=== PATIENT | female | born 1970 | race Caucasian/White ===

== ENCOUNTER → 2017-03-15 | Outpatient (CLI) | payer BC ==
[~2017-03-15] MED LIST: ADVIN25050 INH; ALBU0.08 INH; ALBUAER19 INH; ASPEC81 PO; CETI10TA84 PO; DEXL30CA5 PO; DIPH25CA65 PO; GUAI1TAB55 PO; MONT1TAB3 PO; PROM25TA9 PO; SUMA25TA12 PO; TOPI50TA16 PO
--- NOTE | 2017-03-15 12:18 | DIAGNOSTIC IMAGING REPORT ---
CHEST 2 VIEWS ROUTINE CLINICAL HISTORY: 47 years-old Female presenting with cough. TECHNIQUE: PA and lateral views of the chest were obtained. COMPARISON: None. FINDINGS: Cardiomediastinal silhouette normal. Lungs and pleural spaces clear. Osseous structures and upper abdomen normal. IMPRESSION: 1. No acute cardiopulmonary disease. Electronically signed by: Murali Gavin 03/15/2017 12:17 PM Dictated Date/Time: 03/15/2017 12:16 PM
== END | disposition home or self-care (01) ==
LOC: C.RADBBURG 10:10
PROVIDERS: ATTEND Physician Assistant
DX: R05 Cough (principal)

== ENCOUNTER → 2017-08-27 | Outpatient (CLI) | payer BC ==
--- NOTE | 2017-08-28 07:41 | PAP/PSG TECHNICIAN REPORT ---
[facility] Dairy Equipment Installer Polysomnogram Report Study name: None Report date: 08/28/2017 Study date: 08/27/2017 Referring Physician: Judy Curtis PA-C, PA-C Name: KHLOE LUGO Interpreting Physician: Santiago Zavaleta D.O. Date of : 1970 Dairy Equipment Installer: Maria Isabel Wood [facility]. Sex: Female Age: 47 StudyType: PSG PAP Weight: 251 lbs Height: 47 years, Height 5' 2" : BMI: 45.9 Medications: Mucinex 600 mg, Zyrtec 10 mg, Montelukast 10 mg, Dexilant 60 mg, Imitrex, Benadryl 25 mg, Sumatriptan 100 mg, Promethazine 25 mg, Ventolin 90 mcg, Atrovent 90 mcg, Albuterol Patient History 47 yr. old female here for an update titration sleep study. Patients had been on CPAP since 2011 and is on 12 CWP. She has never had an in lab sleep study. Patients [place] Sleepiness Scale Score is 8/24. Parameters Monitored NPSG: E1-M2, E2-M1, Fp1-M2, Fp2-M1, F3-M2, F4-M2, F4-M1, C3-M2, C4-M2, C4-M1, O1-M2, O2-M2, O2-M1, T3-M2, T4-M1, P3-M2, P4-M1, CHIN1, CHIN2, HR, EKG, Legs, PFLOW, SNOR, FLOW, CFLOW, Tidal Volume, THOR, ABDO, SpO2, PLTH, CPRESS, ETCO2 Wave, ETCO2, pH Sleep Architecture Sleep Stages Time at Lights Off 10:21:02 PM STAGES Time (min.) TST (%) Time at Lights On 5:35:02 AM Wake 6.5 -- Total Recording Time (TRT) 434.00 min. N1 9.5 2 Total Sleep Period (TSP) 430.5 min. N2 242.0 57 Total Sleep Time (TST) 427.5min. N3 71.5 17 Awake Time 6.5 min. REM 104.5 24 Wake after Sleep Onset 3.0 min. Sleep Efficiency (SE) 99 % Sleep Onset Latency (SOSA) 3.5 min. Number of Stage 1 Shifts None Awakenings 5 Stage Changes 46 Number of REM periods 5 REM 104.5 24 REM Latency 80.5 min. NREM 323.0 76 Body Position Analysis Supine Right Left Side Prone Vertical Total Sleep Time (min.) 197.7 101.0 130.3 231.28 0.0 1.3 Total Sleep Time (%) 46% 24% 30% 54 0% N/A% Total Sleep Time REM (min.) 63.5 32.5 8.5 None 0.0 0.0 Total Sleep Time NREM (min.) 132.7 68.5 121.8 None 0.0 0.0 Intermittent Wake (min.) 1.5 0.0 3.7 None 0.0 1.3 Total Sleep Period (%) 46% None None None None None Arousals Myoclonus (PLM) * Events Count Index Events Count Index Spontaneous 4 1 Events Awake (PLMW) 7 64.6 Respiratory 0 0.0 Events Asleep w/ Arousal (PLMA) 3 0.4 PLM 3 0 Events Asleep w/o Arousal (PLMS) 26 3.6 Snoring 1 0 Total Asleep 29 4.1 Total 8 1 Total 36 5 Respiratory Analysis * CA OA MA CH H RERA Total Count 0 0 0 0 7 0 7 Index 0.0 0.0 0.0 0 1.0 0 1.0 Mean Duration 0.0 0.0 0.0 0.00 24.0 0.0 24.0 Longest Duration 0.0 0.0 0.0 0.00 0.0 0.0 47.1 Respiratory Event Summary Total Supine ~Supine Right Left Prone REM NREM Apneas Count 0 0 0 0 0 N/A 0 0 Index 0.0 0 0 0.0 0.0 N/A 0 0 Hypopneas (4% Desat) Count 7 6 1 1 0 N/A 1 6 Index 1.0 1.8 0 0.6 0.0 N/A 0.6 1.1 Apneas & All Hypopneas Count 7 6 1 1 0 N/A 1 6 Index 1.0 2 0 1 0 N/A 0.6 1.1 Respiratory Events (Structural Metal Worker+All Hyp+RERA) Count 7 6 1 1 0 N/A 1 6 Index 1.0 2 0 0.6 0.0 N/A 0.6 1.1 Respiratory Related Arousal Count 0 6 0 0 0 N/A 0 0 Index 0.0 0 0 0 0 N/A 0 0 Snoring Analysis Supine Right Left Prone REM NREM Total Snore duration 15.0 min Snores count 376 6 467 N/A 94 755 849 Snore mean duration 1.1 Sec Snores index 115 4 215 N/A 54.0 140.2 119.2 TST with snoring (%) 3.5% Desaturation Event Summary: Minimum %SpO2 Event Count Mean/Min/Max Duration(sec.) Desaturation Index % Time In Bed > 90 10 29.7 / 10.3 / 53.3 1.4 100.0 86 - 90 0 N/A 0.0 0.0 81 - 85 0 N/A 0.0 0.0 76 - 80 0 N/A 0.0 0.0 71 - 75 0 N/A 0.0 0.0 66 - 70 0 N/A 0.0 0.0 61 - 65 0 N/A 0.0 0.0 56 - 60 0 N/A 0.0 0.0 51 - 55 0 N/A 0.0 0.0 < 50 0 N/A 0.0 0.0 Total REM NREM Awake <50% 0.0 min. 0.0 min. 0.0 min. 0.0 min. 51 - 60% 0.0 min. 0.0 min. 0.0 min. 0.0 min. 61 - 70% 0.0 min. 0.0 min. 0.0 min. 0.0 min. 71 - 80% 0.0 min. 0.0 min. 0.0 min. 0.0 min. 81 - 90% 0.2 min. 0.0 min. 0.2 min. 0.0 min. 91 - 100% 433.5 min. 104.5 min. 322.8 min. 6.2 min. Average 96 96 96 97 Minimum SpO2 90 92 90 94 Desaturation Event Index 1.4 1.1 1.3 9.2 # Desat. Events below 89% N/A N/A N/A N/A Time(%) with Saturation below 89% 0.0 0.0 0.0 0.0 Time(min.) with Saturation below 89% 0.0 0.0 0.0 0.0 Time (mins) REM (mins) NREM (mins) % of TST SpO2 Below 90% 2 N/A N2 0.0 SpO2 Below 88% 0 0 0 0 Heart Rate Analysis Min (bpm) Max (bpm) Average (bpm) Awake 73 111 89 NREM 69 112 84 REM 73 101 86 Overall 69 112 84 Supplemental O2 Values Minimum O2 level: None Value Start Time End Time Dairy Equipment Installer Comments MS. Lugo slept in the right, left, and supine positions. No cardiac arrhythmia or PLMs noted. No bruxism noted. CPAP was initiated at +4 CMH2O room air and up-titrated to an optimal level of +7 CMH2O Cflex 2 , which nearly eliminated all respiratory events and snoring. A small ResMed [id number], was used during titration. MS. Lugo did not wake to use the restroom during the night. MS. Lugo stated, "that was a normal night". The final report will be interpreted and signed by a sleep physician. The completed physician report will then be placed in the patient medical record. Therapy Event: Therapy (cm H20) 4 5 6 7 Total Time at Pressure (min.) 22.1 11.8 163.6 236.4 TST at Pressure (min.) 18.7 11.8 161.6 235.4 # Periods 1 1 1 1 Sleep Onset (min.) 3.4 0.0 0.0 0.0 REM Onset (min.) N/A N/A 49.9 4.9 Sleep Efficiency % 84 100 98 99 Wakefulness (%) 15.3 0.0 1.2 0.4 Wakefulness (min.) 3.4 0.0 2.0 1.0 NREM 1 (%) 9.0 0.0 1.8 1.9 NREM 1 (min.) 2.0 0.0 3.0 4.5 NREM 2 (%) 75.6 65.7 46.5 59.8 NREM 2 (min.) 16.7 7.8 76.1 141.4 NREM 3 (%) 0.0 34.3 35.7 3.8 NREM 3 (min.) 0.0 4.1 58.4 9.0 REM (%) 0.0 0.0 14.7 34.1 REM (min.) 0.0 0.0 24.0 80.5 # Arousals 0 0 3 5 Arousal Index 0.0 0.0 1.1 1.3 # Snore 59 162 449 179 Snore Index 189.0 821.9 166.8 45.6 AHI 0.0 0.0 2.2 0.3 AHI Supine N/A N/A 3.0 0.6 AHI Non-Supine 0.0 0.0 1.0 0.0 NREM AHI 0.0 0.0 2.6 0.0 REM AHI N/A N/A 0.0 0.7 RDI 0.0 0.0 2.2 0.3 # Obstructive 0 0 0 0 # Central Ap 0 0 0 0 # Mixed 0 0 0 0 # Hypopneas 0 0 6 1 RERAS 0 0 0 0 Total Respiratory Events 0 0 6 1 Time Below SpO2 89.00% (min.) 0.0 0.0 0.0 0.0 Mean NREM SpO2 (%) 97 96 96 96 Mean REM SpO2 (%) N/A N/A 95 96 Mean Sleep SpO2 (%) 97 96 95 96 Min NREM SpO2 (%) 94 95 90 94 Min REM SpO2 (%) N/A N/A 92 93 Position Supine (min.) 0.0 0.0 98.6 97.6 Position Non-supine (min.) 18.7 11.8 62.9 137.8 LM Index Sleep 3.2 0.0 3.7 4.6 LM Index NREM 3.2 0.0 3.5 4.3 LM Index REM N/A N/A 5.0 5.2 Mean Heart Rate (bpm) 90 88 86 83 Min Heart Rate (bpm) 86 83 75 69
== END | disposition home or self-care (01) ==
LOC: C.NEUR 20:00
PROVIDERS: ATTEND Physician Assistant
DX: G47.30 Sleep apnea, unspecified (principal)

== ENCOUNTER 2017-10-24 12:12 | Emergency (ER) | payer BC, OTHER ==
[~2017-10-24] VITALS: Ht 157.5 cm; Wt 120.0 kg
[2017-10-24 12:17] VITALS: TEMP 37; Ht 157.5 cm; Wt 120.0 kg
[2017-10-24] MEDS ORDERED: DEXL60CA4 PO (12:45)
[2017-10-24] MEDS ORDERED: RANI150T85 PO (12:45)
[2017-10-24] MEDS ORDERED: PHENSYP13 PO (12:45)
[2017-10-24] MEDS ORDERED: ATRIN INH (12:45)
[2017-10-24] MEDS ORDERED: FLUT1INH PO (12:45)
[2017-10-24] MEDS ORDERED: IPRASOL4 INH (12:45)
--- NOTE | 2017-10-24 13:18 | EMERGENCY ROOM VISIT NOTE ---
History First contact with patient: 12:30 Chief Complaint: RESPIRATORY PROBLEMS Stated Complaint: ASTHMA Nursing Triage Summary: cough since this am History of Present Illness The patient is a 47 year old female who presents to the Emergency Room with complaints of ongoing cough, wheezing, worsening asthma symptoms since September 13 of this year. On September 18, the patient was seen at [facility] where she was put on Augmentin, prednisone, and DuoNeb treatments. On September 20, she followed up with her primary care provider who increased her prednisone dose and put her on codeine cough syrup. On September 29, the patient was seen at [place], where she was put on Levaquin for 7 days. On October 11, she was seen again by her primary care provider where she had a negative chest x-ray performed. At that time, she was given a steroid injection , repeat taper of steroids, more codeine cough syrup, and advised to do DuoNeb treatments every 4 hours. On October 15, she saw her primary care provider again and was started on a 10 day course of Levaquin. The patient states that that time, she was advised to avoid working until she was feeling better. She states she went back to work on Saturday of this week, and her symptoms have been worsening. At 6:00 this morning, she did a nebulizer treatment, got a shower, and while getting out of the shower began experiencing significant dyspnea and wheezing which she described as an asthma attack. She took her rescue inhaler and did not experience any relief. 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 Upon arrival, the patient is feeling back to her baseline for the past 6 weeks. She continues to complain of cough, but no longer has the difficulty breathing or significant wheezing. She did take Atrovent, her final dose of Levaquin, Mucinex, and Zyrtec this morning. She denies any chest pain, difficulty breathing at this time, headache , dizziness, abdominal pain, nausea, vomiting, fever, or other concerning symptoms. Review of Systems A complete 10 point review of systems was reviewed with the patient with pertinent positives and negatives as per history of present illness. All else were negative. Past Medical/Surgical History Medical Problems: (1) Hypertension Social History Smoking Status: Never Smoker Drug Use: none Marital Status: Housing Status: lives with family Current/Historical Medications Scheduled Cetirizine (Zyrtec), 10 MG PO DAILY Dexlansoprazole (Dexilant), 60 MG PO QPM Fluticasone Furoate-Vilanterol (Breo Ellipta), 1 PUFF PO DIRECTED Ipratropium-Albuterol (Duoneb), 1 TREATMENT INH Q4H Montelukast Sodium (Singulair), 10 MG PO DAILY Prednisone Tab (Prednisone), 60 MG PO DAILY Ranitidine (Zantac), 150 MG PO QAM Sumatriptan Succinate (Imitrex), 1 TAB PO PRN Topiramate (Topamax), 50 MG PO DAILY Scheduled PRN Albuterol Inhaler (Ventolin Inhaler), 2 PUFFS INH QID PRN for SOB/Wheezing Albuterol Soln (Proventil 0.083% 2.5MG/3ML), 2.5 MG INH Q4 PRN for SOB/Wheezing Diphenhydramine Hcl (Benadryl Allergy), 1 CAP PO DAILY PRN for ALLERGIC REACTION Guaifenesin Ext Rel (Mucinex Ext Rel), 600 MG PO Q12 PRN for CONGESTION Ipratropium [place] (Atrovent Hfa), 2 PUFFS INH QID PRN for PRN Promethaz/Phenylephrin/Codeine (Promethazine Vc/Codeine), 5-10 ML PO Q6 PRN for Cough Promethazine Hcl (Phenergan), 25 MG PO Q6H PRN for Nausea Physical Exam Vital Signs Date Time Temp Pulse Resp B/P (MAP) Pulse Ox O2 Delivery O2 Flow Rate FiO2 10/24/17 17:35 99 21 146/97 95 10/24/17 16:21 104 22 138/94 96 Room Air 10/24/17 14:47 126/82 10/24/17 14:12 98 15 100 10/24/17 13:50 107 24 128/72 94 Room Air 10/24/17 13:49 95 Room Air 10/24/17 13:42 103 19 98 10/24/17 13:31 104 10/24/17 13:27 129/72 10/24/17 12:17 37.0 114 20 144/88 98 Room Air Physical Exam VITALS: Vitals are noted on the nurse's note and reviewed by myself. Vital signs stable. GENERAL: This is a 47-year-old obese white female, in no acute distress, nondiaphoretic, well-developed well-nourished. SKIN: The skin was without rashes, erythema, edema, or bruising. There is no tenting of the skin. Capillary reflex less than 2 seconds. HEAD: Normocephalic atraumatic. EARS: External auditory canals clear, tympanic membranes pearly dillard without erythema or effusion bilaterally. EYES: Pupils equal round and reactive to light and accommodation. Conjunctivae without injection, sclerae without icterus. Extraocular movements intact. NOSE: Patent, turbinates without inflammation or discharge. No sinus tenderness. MOUTH: Mucous membranes moist. Tonsils are not enlarged. Pharynx without erythema or exudate. Uvula midline. Airway patent. Tongue does not deviate. NECK: Supple without nuchal rigidity. No lymphadenopathy. No thyromegaly. Cervical spine is nontender. No JVD. HEART: Regular rate and rhythm without murmurs gallops or rubs. LUNGS: Mild occasional expiratory wheezing diffusely. Lungs are otherwise clear to auscultation bilaterally without wheezes, rales or rhonchi. No dullness to percussion. No retractions or accessory muscle use. The patient does have a dry sounding cough. ABDOMEN: Positive bowel sounds x 4. Normal tympanic percussion. Soft, nontender, without masses or organomegaly. Jeter sign negative. No guarding or rebound tenderness. MUSCULOSKELETAL: No muscle atrophy, erythema, or edema noted. Full range of motion without joint tenderness in all extremities. No tenderness to palpation. Normal gait. Strength 5/5 throughout. NEURO: Patient was alert and oriented to person place and time. Normal sensation to light and sharp touch. Deep tendon reflexes 2+ throughout. No focal neurological deficits. Medical Decision & Procedures ER Provider Diagnostic Interpretation: CHEST 2 VIEWS ROUTINE CLINICAL HISTORY: cough dyspnea COMPARISON STUDY: 03/15/2017 FINDINGS: The bones soft tissues and hemidiaphragms are normal. The cardiomediastinal silhouette is normal. The lungs are clear. The pulmonary vasculature is normal. IMPRESSION: Negative chest. The above report was generated using voice recognition software. It may contain grammatical, syntax or spelling errors. Electronically signed by: Bobby Brooke M.D. 10/24/2017 2:33 PM Dictated Date/Time: 10/24/2017 2:32 PM (CHEST FOR PE) ANGIO WITH CT DOSE: 539.70 mGy.cm HISTORY: 47 years-old Female acute cough and elevated d-dimer level TECHNIQUE: Multiple CTA images of the chest were obtained after the intravenous administration of 86 ml Optiray 320. Coronal and sagittal MIPS were obtained from the axial data set and were submitted for review. A dose lowering technique was utilized adhering to the principles of ALARA. COMPARISON: Chest radiographs of same day. FINDINGS: CTA: Heart is normal in size without pericardial effusion. Coronary arterial disease. The thoracic aorta is normal in both course and caliber with a bovine configuration. The imaged great vessels appear to be patent. There is no aortic aneurysm or dissection identified. The pulmonary arterial tree is opacified to level of the proximal segmental branches. The distal segmental and subsegmental branches are not well seen secondary to contrast bolus timing. There is an ill-defined focal area of low-attenuation involving a subsegmental branch of the left lower lobe as seen on image 103 series 4. No central pulmonary embolus identified. CT CHEST: No dominant thyroid nodule. Calcified subcarinal and hilar lymph nodes are compatible with prior granulomatous disease. No pneumothorax or pleural effusion. Patchy bilateral groundglass opacities are noted. No lobar airspace consolidations are seen. Central airways are patent. Cholelithiasis. Catheter granulomas are seen to the spleen. Postsurgical changes of the stomach. Soft tissues are unremarkable. Bones appear intact. Multilevel endplate spurring about the spine. IMPRESSION: 1. Suboptimal evaluation of the pulmonary arterial tree secondary to contrast bolus timing. No central pulmonary embolus is identified. There is however an ill-defined tiny filling defect noted within a subsegmental pulmonary arterial branch within the left lower lobe as above which may be artifactual or reflect a tiny embolus. Correlation with duplex venous ultrasound of the lower extremities recommended. 2. Patchy multilobar distribution of groundglass opacities favors atelectasis. No lobar airspace consolidation identified to suggest pneumonia. 3. Cholelithiasis. 4. Prior granulomatous disease. The above report was generated using voice recognition software. It may contain grammatical, syntax or spelling errors. Electronically signed by: Sam Ivey M.D. 10/24/2017 3:37 PM Dictated Date/Time: 10/24/2017 3:29 PM BILATERAL LOWER EXTREMITY VENOUS DOPPLER HISTORY: possible small pulmonary embolus, cough/dyspnea COMPARISON STUDY: None. FINDINGS: There is normal compressibility, flow, and augmentation within the bilateral lower extremity deep venous systems. IMPRESSION: No DVT within the right or left lower extremity. Electronically signed by: Compa Cisneros M.D. 10/24/2017 5:06 PM Dictated Date/Time: 10/24/2017 5:06 PM Laboratory Results 10/24/17 13:35 Red Blood Count 4.09, Mean Corpuscular Volume 87.3, Mean Corpuscular Hemoglobin 28.6, Mean Corpuscular Hemoglobin Concent 32.8, Mean Platelet Volume 9.2, Neutrophils (%) (Auto) 77.5, Lymphocytes (%) (Auto) 15.0, Monocytes (%) (Auto) 5.6, Eosinophils (%) (Auto) 0.7, Basophils (%) (Auto) 0.2, Neutrophils # (Auto) 9.60, Lymphocytes # (Auto) 1.86, Monocytes # (Auto) 0.69, Eosinophils # (Auto) 0.09, Basophils # (Auto) 0.02 10/24/17 13:35 Test 10/24/17 13:35 10/24/17 13:50 White Blood Count 12.38 K/uL (4.8-10.8) Red Blood Count 4.09 M/uL (4.2-5.4) Hemoglobin 11.7 g/dL (12.0-16.0) Hematocrit 35.7 % (37-47) Mean Corpuscular Volume 87.3 fL (80-100) Mean Corpuscular Hemoglobin 28.6 pg (25-34) Mean Corpuscular Hemoglobin Concent 32.8 g/dl (32-36) Platelet Count 299 K/uL (130-400) Mean Platelet Volume 9.2 fL (7.4-10.4) Neutrophils (%) (Auto) 77.5 % Lymphocytes (%) (Auto) 15.0 % Monocytes (%) (Auto) 5.6 % Eosinophils (%) (Auto) 0.7 % Basophils (%) (Auto) 0.2 % Neutrophils # (Auto) 9.60 K/uL (1.4-6.5) Lymphocytes # (Auto) 1.86 K/uL (1.2-3.4) Monocytes # (Auto) 0.69 K/uL (0.11-0.59) Eosinophils # (Auto) 0.09 K/uL (0-0.5) Basophils # (Auto) 0.02 K/uL (0-0.2) RDW Standard Deviation 44.7 fL (36.4-46.3) RDW Coefficient of Variation 13.9 % (11.5-14.5) Immature Granulocyte % (Auto) 1.0 % Immature Granulocyte # (Auto) 0.12 K/uL (0.00-0.02) Erythrocyte Sedimentation Rate 46 mm/hr (0-21) Prothrombin Time 9.4 SECONDS (9.0-12.0) Prothromb Time International Ratio 0.9 (0.9-1.1) Activated Partial Thromboplast Time 24.8 SECONDS (21.0-31.0) Partial Thromboplastin Ratio 1.0 D-Dimer 670 ug/L FEU (0-500) Anion Gap 8.0 mmol/L (3-11) Est Creatinine Clear Calc Drug Dose 125.1 ml/min Estimated GFR () 121.3 Estimated GFR (Non- 104.6 BUN/Creatinine Ratio 9.8 (10-20) Calcium Level 8.6 mg/dl (8.5-10.1) Total Bilirubin 0.4 mg/dl (0.2-1) Aspartate Amino Transf (AST/SGOT) 17 U/L (15-37) Alanine Aminotransferase (ALT/SGPT) 21 U/L (12-78) Alkaline Phosphatase 72 U/L (45-117) Troponin I < 0.015 ng/ml (0-0.045) C-Reactive Protein 1.96 mg/dl (0-0.29) Total Protein 7.3 gm/dl (6.4-8.2) Albumin 3.2 gm/dl (3.4-5.0) Globulin 4.1 gm/dl (2.5-4.0) Albumin/Globulin Ratio 0.8 (0.9-2) Chemistry Specimen Hemolysis Influenza Type A Antigen Neg for Influ A (NEG) Influenza Type B Antigen Neg for Influ B (NEG) Medications Administered Medications (Trade) Dose Ordered Sig/Guillermo Route Start Time Stop Time Status Last Admin Dose Admin Methylprednisolone Sodium Succinate (Solu-Medrol IV) 125 mg NOW STAT IV 2/15/18 13:26 10/24/17 13:27 DC 10/24/17 13:58 125 MG Albuterol/ Ipratropium (Duoneb) 3 ml NOW STAT INH 10/24/17 13:26 10/24/17 13:27 DC 10/24/17 13:58 3 ML ECG Per My Interpretation Indication: SOB/dyspnea Rate (beats per minute): 100 Rhythm: normal sinus Findings: no acute ischemic change, no ectopy ED Course The patient was seen and evaluated as above. I contacted the patient's pulmonology office, and spoke with Kelsey, office staff. I asked about their recommendations for evaluation of this patient, as her symptoms are stable and consistent with what she has been experiencing the past 6 weeks. She states she spoke with Dr. Juárez, who said he has not evaluated the patient, and he would like us to perform an evaluation. I told her that the patient has been stable while here, and her symptoms have been ongoing for 6-8 weeks. I discussed with Kelsey that the patient's symptoms have not responded to multiple rounds of antibiotics, multiple rounds of steroids, codeine cough syrup, or ongoing DuoNeb treatments. She has had a negative chest x-ray. Dr. Juárez apparently said that he is not there to evaluate the patient and recommends we perform the evaluation and treat the patient, despite her failing all other treatments outpatient. He apparently said that he would only send the patient here if she were having an acute asthma exacerbation and that he would like for us to evaluate her. He has never seen the patient, as she has always followed with one of the PA's in the office. Kelsey advised me that they would look to see if the patient could be seen sooner than her appointment which is already scheduled on the of the month. She did not offer an appointment at this time. Dyspnea workup was initiated. IV access obtained, labs drawn. EKG ordered and performed. This was interpreted by myself as above. Chest x-ray was ordered and performed. This was reviewed by myself and radiologist as above. Patient's D-dimer test was positive, so CTA of the chest was ordered and reviewed. CTA of the chest showed possible small pulmonary embolism versus artifact, and DVT studies of the bilateral lower extremities was recommended. These ultrasounds were performed. All studies were reviewed by myself. I did discuss the case with Dr. Rick. While the patient was here, she was given Solu-Medrol and a DuoNeb treatment with improvement in her symptoms. Discharge instructions reviewed, and patient was discharged home in good condition. Medical Decision This is a 47-year-old female patient presents to the emergency department complaining of 6 week history of coughing and chest congestion. She has been treated with multiple doses of antibiotics, steroids, and other remedies without improvement in her symptoms. She is already under the care of pulmonology, and does see Judy He with [facility] pulmonology. The patient is unable to get an appointment until the . This morning she experienced an asthma exacerbation as she was getting out of the shower. Pulmonology recommended she come to the emergency department for evaluation. Approximately 5 hours after the asthma exacerbation, she did come to the emergency department. While here, the patient was stable, not tachycardic, and was having no difficulty breathing. She was having difficulty speaking and did occasionally have coughing attacks, however her oxygen saturation and respirations remained within normal limits. The patient's workup here in the ED did show some mild leukocytosis of 12,000. CMP did not reveal any significant electrolyte, hepatic, or renal abnormalities. The patient's CRP was elevated at 1.96, which I suspect is related to the inflammation and recent illness. PT, INR was normal. D-Dimer was elevated, so CTA chest was performed. This was suspicious for small PE, but the radiologist was uncertain, so Doppler US of sergey LE ordered and performed which were negative. The patient's influenza testing was negative. The patient's symptoms are consistent with the bronchitis she has been experiencing. I am uncertain to the etiology, and feel that pulmonology needs to be involved to make this final diagnosis. The patient's symptoms have responded to steroids in the past, however the patient states she has had difficulty getting below 40 mg of prednisone. Patient will be started on a high , long taper of prednisone until she is able to be seen by pulmonology. The patient was agreeable to this assessment and plan. Discharge instructions reviewed, and the patient was discharged home in good condition. Etiologies such as bronchitis, cardiac ischemia, aortic dissection, pulmonary embolism, pneumonia, pneumothorax, musculoskeletal, infections, gastrointestinal , as well as others were entertained. Medication Reconcilliation Current Medication List: was personally reviewed by me Blood Pressure Screening Patient's blood pressure: Normal blood pressure Impression Primary Impression: Bronchitis Departure Information Dispostion Home / Self-Care Condition GOOD Prescriptions Prednisone Tab (PREDNISONE) 10 Mg Tab 60 MG PO DAILY, #60 TAB x3 days, 50mg PO QD x3 days, 40mg PO QD x3 days, 30mg PO QD x3 days, 20mg PO QD x3 days, then stop Prov: Leilani Masters PA-C 10/24/17 Referrals Alexander Johnson D.O. (PCP) Patient Instructions ED Bronchitis Asthmatic, My [facility] Additional Instructions You were seen and evaluated in the emergency department today for cough/asthma attack. As discussed, you should follow-up with pulmonology [facility]. You have been prescribed Prednisone. This is a steroid which will help decrease your inflammation, wheezing, and cough. Take this medicine as prescribed. Take the ENTIRE course unless directed otherwise by pulmonology. It is best to take steroids early in the morning as PM dosing can affect your sleeping patterns. Drink warm tea with honey and lemon, as this will also help to soothe the throat. Gargle with salt water frequently. Ibuprofen(Motrin, Advil) may be used for fever or pain. Use 600mg every six hours as needed. Take with food. Avoid using more than 2400mg in a 24 hour period. Do not use 2400mg per day for more than three consecutive days without physician direction. Prolonged inappropriate use can lead to stomach upset or ulcers. You may take Naproxen 1-2 tablets twice daily in place of ibuprofen. This medication will help with the swelling in your sinuses. (AND/OR) Acetaminophen(Tylenol) may be used for fever or pain. Use 1000mg every six hours as needed. Avoid using more than 3000mg in a 24 hour period. For congestion, you may use Flonase OTC. You may want to consider zinc, echinacea, and vitamin C to help boost your immunity. Please get plenty of rest and drink plenty of fluids. Please return or follow-up with your PCP in 1 week if you are not experiencing any improvement in your symptoms. Return to the emergency department for coughing up blood, difficulty breathing, chest pain, worsening symptoms, or for other concerns. Work Instructions Return To Work: 3 days
[2017-10-24] MEDS ORDERED: METHYLPREDNISOLONE 125 MG VIAL IV STA (13:26)
[2017-10-24] MEDS ORDERED: ALBUT/IPRATROP 3MG/0.5MG NEB 3 ML VIAL INH STA (13:26)
[2017-10-24 13:49] VITALS: O2SAT 95
[2017-10-24 14:08] LABS: BASO % 0.2 %; BASO ABS # 0.02 K/uL (0-0.2); EOS % 0.7 %; EOS ABS # 0.09 K/uL (0-0.5); HEMATOCRIT 35.7 % (37-47); HEMOGLOBIN 11.7 g/dL (12.0-16.0); IG# 0.12 K/uL (0.00-0.02); LYMPH ABS # 1.86 K/uL (1.2-3.4); MEAN CELL VOLUME 87.3 fL (80-100); MEAN CORPUSCULAR HEMOGLOBIN 28.6 pg (25-34); MEAN CORPUSCULAR HGB CONC 32.8 g/dl (32-36); MEAN PLATELET VOLUME 9.2 fL (7.4-10.4); MONO % 5.6 %; MONO ABS # 0.69 K/uL (0.11-0.59); NEUT % 77.5 %; PLATELET COUNT 299 K/uL (130-400); RED CELL DISTRIBUTION WIDTH CV 13.9 % (11.5-14.5); RED CELL DISTRIBUTION WIDTH SD 44.7 fL (36.4-46.3); WHITE BLOOD COUNT 12.38 K/uL (4.8-10.8)
[2017-10-24 14:14] LABS: INR 0.9 (0.9-1.1); PTT PATIENT 24.8 SECONDS (21.0-31.0)
[2017-10-24 14:32] LABS: ALBUMIN 3.2 gm/dl (3.4-5.0); ALKALINE PHOSPHATASE 72 U/L (45-117); ALT/SGPT 21 U/L (12-78); AST/SGOT 17 U/L (15-37); BLOOD UREA NITROGEN 7 mg/dl (7-18); CALCIUM 8.6 mg/dl (8.5-10.1); CARBON DIOXIDE 21 mmol/L (21-32); GLUCOSE 100 mg/dl (70-99); SODIUM 138 mmol/L (136-145); TOTAL PROTEIN 7.3 gm/dl (6.4-8.2)
--- NOTE | 2017-10-24 14:34 | DIAGNOSTIC IMAGING REPORT ---
CHEST 2 VIEWS ROUTINE CLINICAL HISTORY: cough dyspnea COMPARISON STUDY: 03/15/2017 FINDINGS: The bones soft tissues and hemidiaphragms are normal. The cardiomediastinal silhouette is normal. The lungs are clear. The pulmonary vasculature is normal. IMPRESSION: Negative chest. The above report was generated using voice recognition software. It may contain grammatical, syntax or spelling errors. Electronically signed by: Bobby Brooke M.D. 10/24/2017 2:33 PM Dictated Date/Time: 10/24/2017 2:32 PM
[2017-10-24 14:39] LABS: INFLUENZA B ANTIGEN Neg for Influ B (NEG)
[2017-10-24] MEDS ORDERED: OPTIRAY 320 IV PRN (14:45)
--- NOTE | 2017-10-24 15:38 | DIAGNOSTIC IMAGING REPORT ---
(CHEST FOR PE) ANGIO WITH CT DOSE: 539.70 mGy.cm HISTORY: 47 years-old Female acute cough and elevated d-dimer level TECHNIQUE: Multiple CTA images of the chest were obtained after the intravenous administration of 86 ml Optiray 320. Coronal and sagittal MIPS were obtained from the axial data set and were submitted for review. A dose lowering technique was utilized adhering to the principles of ALARA. COMPARISON: Chest radiographs of same day. FINDINGS: CTA: Heart is normal in size without pericardial effusion. Coronary arterial disease. The thoracic aorta is normal in both course and caliber with a bovine configuration. The imaged great vessels appear to be patent. There is no aortic aneurysm or dissection identified. The pulmonary arterial tree is opacified to level of the proximal segmental branches. The distal segmental and subsegmental branches are not well seen secondary to contrast bolus timing. There is an ill-defined focal area of low-attenuation involving a subsegmental branch of the left lower lobe as seen on image 103 series 4. No central pulmonary embolus identified. CT CHEST: No dominant thyroid nodule. Calcified subcarinal and hilar lymph nodes are compatible with prior granulomatous disease. No pneumothorax or pleural effusion. Patchy bilateral groundglass opacities are noted. No lobar airspace consolidations are seen. Central airways are patent. Cholelithiasis. Catheter granulomas are seen to the spleen. Postsurgical changes of the stomach. Soft tissues are unremarkable. Bones appear intact. Multilevel endplate spurring about the spine. IMPRESSION: 1. Suboptimal evaluation of the pulmonary arterial tree secondary to contrast bolus timing. No central pulmonary embolus is identified. There is however an ill-defined tiny filling defect noted within a subsegmental pulmonary arterial branch within the left lower lobe as above which may be artifactual or reflect a tiny embolus. Correlation with duplex venous ultrasound of the lower extremities recommended. 2. Patchy multilobar distribution of groundglass opacities favors atelectasis. No lobar airspace consolidation identified to suggest pneumonia. 3. Cholelithiasis. 4. Prior granulomatous disease. The above report was generated using voice recognition software. It may contain grammatical, syntax or spelling errors. Electronically signed by: Sam Ivey M.D. 10/24/2017 3:37 PM Dictated Date/Time: 10/24/2017 3:29 PM
--- NOTE | 2017-10-24 17:08 | DIAGNOSTIC IMAGING REPORT ---
BILATERAL LOWER EXTREMITY VENOUS DOPPLER HISTORY: possible small pulmonary embolus, cough/dyspnea COMPARISON STUDY: None. FINDINGS: There is normal compressibility, flow, and augmentation within the bilateral lower extremity deep venous systems. IMPRESSION: No DVT within the right or left lower extremity. Electronically signed by: Compa Cisneros M.D. 10/24/2017 5:06 PM Dictated Date/Time: 10/24/2017 5:06 PM
[2017-10-24] MEDS ORDERED: PRED10TA PO (17:32)
[2017-10-24 17:35] VITALS: BP 146/97; PULSE 99; O2SAT 95
== END 2017-10-24 17:50 | disposition home or self-care (01) ==
LOC: C.EDB 12:13 → C.EDC 17:50
DX: J40 Bronchitis, not specified as acute or chronic (principal); J45.909 Unspecified asthma, uncomplicated; I10 Essential (primary) hypertension

== ENCOUNTER 2017-10-29 16:58 | Inpatient (IN) | payer OTHER ==
[~2017-10-29] VITALS: Ht 157.5 cm; Wt 118.4 kg
[~2017-10-29 16:58] MED LIST changes: -ADVIN25050 INH; -ASPEC81 PO; +ATRIN INH; -DEXL30CA5 PO; +DEXL60CA4 PO; +FLUT1INH PO; +IPRASOL4 INH; +PHENSYP13 PO; +PRED10TA PO; +RANI150T85 PO
[2017-10-29 17:29] VITALS: BP 124/81; PULSE 104; TEMP 37; O2SAT 94
[2017-10-29] MEDS ORDERED: METHYLPREDNISOLONE 125 MG VIAL IV STA (17:52)
[2017-10-29 17:56] VITALS: BMI 47.9
[2017-10-29] MEDS ORDERED: IPRATROPIUM BROMIDE HFA INHALER INH PRN (18:00)
[2017-10-29] MEDS ORDERED: ONDANSETRON INJ 2 MG/ML 2 ML VIAL IV PRN (18:00)
[2017-10-29] MEDS ORDERED: PROMETHAZINE HCL 25 MG TAB PO PRN (18:00)
[2017-10-29] MEDS ORDERED: MAGNESIUM HYDROXIDE SUSP 30 ML UDC PO PRN (18:00)
[2017-10-29] MEDS ORDERED: ACETAMINOPHEN 325 MG TAB PO PRN (18:00)
--- NOTE | 2017-10-29 18:10 | History and Physical ---
History & Physical Date & Time of Service: Oct 29, 2017 at 17:57 Chief Complaint: Severe Asthmatic Bronchitis Primary Care Physician: Alexander Johnson D.O. History of Present Illness Source: patient 47 y/o F who was a direct admission from Dr. Juárez for severe persistent asthmatic bronchitis that has failed outpt management. Pt states that her asthma had been well controlled for about 6 months, however she had an asthma attack at work after a coworker was using a scented candle. She has continued to have repeated asthma attacks since that time despite abx courses x3, steroid courses x4, and Q4h neb tx. She was isolated at home for a period of time as well and this did not help. Pt continues to have attacks regularly, including when she was in the shower. She gets chest stiffness with this, but no pain. When on steroids she takes additional GERD medications due to steroids causing severe GERD for her. She has been able to tolerate PO without issue. Pt denies fever, abd pain, n/v/c/d, LE pain or swelling. Pt has been hospitalized in the past for her asthma, but no hx of intubation. She had a CXR earlier in the course of her work-up and a repeat on 10/24 that were both neg. Other work-up on 10/24: CTA noted for ?? PE, but LE US neg b/l for DVT. Mildly elevated WBC c/w steroid use. Trop neg. Ddimer was +. Flu swab neg. Her sx have not changed since this time. Pt states that Dr. Juárez told her that she would need a bronch during her admission. Past Medical/Surgical History TATIANA GERD Migraines Asthma Social History Smoking Status: Never Smoker Alcohol Use: occasionally (rarely) Drug Use: none Marital Status: Multi-Drug Resistant Organisms History of MDRO: No Allergies Coded Allergies: Erythromycin (Verified Adverse Reaction, Mild, VOMITING, 10/24/17) Home Medications Scheduled Cetirizine (Zyrtec), 10 MG PO DAILY Dexlansoprazole (Dexilant), 60 MG PO QPM Fluticasone Furoate-Vilanterol (Breo Ellipta), 1 PUFF PO DIRECTED Ipratropium-Albuterol (Duoneb), 1 TREATMENT INH Q4H Montelukast Sodium (Singulair), 10 MG PO DAILY Prednisone Tab (Prednisone), 60 MG PO DAILY Ranitidine (Zantac), 150 MG PO QAM Sumatriptan Succinate (Imitrex), 1 TAB PO PRN Topiramate (Topamax), 50 MG PO DAILY Scheduled PRN Albuterol Inhaler (Ventolin Inhaler), 2 PUFFS INH QID PRN for SOB/Wheezing Albuterol Soln (Proventil 0.083% 2.5MG/3ML), 2.5 MG INH Q4 PRN for SOB/Wheezing Diphenhydramine Hcl (Benadryl Allergy), 1 CAP PO DAILY PRN for ALLERGIC REACTION Guaifenesin Ext Rel (Mucinex Ext Rel), 600 MG PO Q12 PRN for CONGESTION Ipratropium [place] (Atrovent Hfa), 2 PUFFS INH QID PRN for PRN Promethaz/Phenylephrin/Codeine (Promethazine Vc/Codeine), 5-10 ML PO Q6 PRN for Cough Promethazine Hcl (Phenergan), 25 MG PO Q6H PRN for Nausea Review of Systems Pertinent positives and negatives reviewed in HPI--all others negative Physical Exam Vital Signs Date Time Temp Pulse Resp B/P (MAP) Pulse Ox O2 Delivery O2 Flow Rate FiO2 10/29/17 17:29 37.0 104 18 124/81 (95) 94 Room Air General Appearance: no apparent distress, + obese Head: normocephalic, atraumatic Eyes: normal inspection, sclerae normal Respiratory/Chest: no respiratory distress, + decreased breath sounds, + pertinent finding (neg for wheezing or crackles) Cardiovascular: regular rate, rhythm, no edema, normal peripheral pulses Abdomen/GI: non tender, soft Extremities/Musculoskelatal: no calf tenderness, no pedal edema Neurologic/Psych: alert, normal mood/affect, oriented x 3 Skin: normal color, warm/dry Diagnostics Diagnostic Radiology As noted in HPI Impression Assessment and Plan 47 y/o F who was a direct admission from Dr. Juárez for severe persistent asthmatic bronchitis that has failed outpt management. severe persistent asthmatic bronchitis: xopenex and solumedrol Pulm c/s for possible bronch Recent CXR, flu swab neg--will not repeat given no change CTA noted for ?? PE, but LE US neg for DVT b/l ECHO 04/2016 was WNL, t/c repeat for pulm HTN eval TATIANA: CPAP Migraines: continue home meds Reg diet for now with NPO after midnight for possible bronch Ambulation and SCDs for DVT proph Level of Care Telemetry VTE Prophylaxis VTE Risk Assessment Done? Y/N: Yes Risk Level: Low
[2017-10-29] MEDS ORDERED: SUMATRIPTAN SUCCINATE 50 MG TAB PO PRN (18:30)
[2017-10-29] MEDS ORDERED: METHYLPREDNISOLONE 125 MG in SYRINGE 0 ML IV ONE (18:30)
[2017-10-29] MEDS ORDERED: GUAIFENESIN/CODEINE 100MG/10MG 5ML UDC PO PRN (18:30)
[2017-10-29 20:11] VITALS: PULSE 82; O2SAT 98
[2017-10-29] MEDS: LEVALBUTEROL 1.25MG/0.5ML NEB INH SCH (20:11)
[2017-10-29] MEDS: ACETYLCYSTEINE 20% INHAL SOLN ***DISPENSED BY RESP. INH SCH (20:11)
[2017-10-29] MEDS: MONTELUKAST SOD 10 MG TAB PO SCH (20:40)
[2017-10-29 22:40] VITALS: PULSE 104; O2SAT 98
[2017-10-29] MEDS: METHYLPREDNISOLONE IV 60 MG in SYRINGE 0 ML IV SCH (23:00)
[2017-10-30] VITALS (12 sets, daily range): BP systolic 112–158; BP diastolic 71–89; PULSE 83–102; TEMP 36.5–37; O2SAT 96–99
[2017-10-30] MEDS ORDERED: BREO ~ ORDER AWAITING ACTION SCH
[2017-10-30] MEDS: LEVALBUTEROL 1.25MG/0.5ML NEB INH SCH ×4 (01:50→20:45)
[2017-10-30] MEDS ORDERED: FLUTICASONE FUROATE-VILANTEROL 200/25 MCG INH INH PRN (03:00)
[2017-10-30 05:53] LABS: HEMATOCRIT 36.7 % (37-47); HEMOGLOBIN 12.2 g/dL (12.0-16.0); MEAN CELL VOLUME 85.7 fL (80-100); MEAN CORPUSCULAR HEMOGLOBIN 28.5 pg (25-34); MEAN CORPUSCULAR HGB CONC 33.2 g/dl (32-36); PLATELET COUNT 340 K/uL (130-400); RED CELL DISTRIBUTION WIDTH CV 13.9 % (11.5-14.5); RED CELL DISTRIBUTION WIDTH SD 43.3 fL (36.4-46.3); WHITE BLOOD COUNT 18.47 K/uL (4.8-10.8)
[2017-10-30] MEDS: ACETYLCYSTEINE 20% INHAL SOLN ***DISPENSED BY RESP. INH SCH ×2 (07:51→20:12)
[2017-10-30] MEDS: TOPIRAMATE 50 MG TAB PO SCH (08:50)
[2017-10-30] MEDS: CETIRIZINE HCL 10 MG TAB PO SCH (08:50)
[2017-10-30] MEDS: GUAIFENESIN 600 MG TABCR PO PRN (08:50)
[2017-10-30] MEDS: METHYLPREDNISOLONE IV 60 MG in SYRINGE 0 ML IV SCH (08:51)
[2017-10-30] MEDS ORDERED: PANTOprazole SOD 40 MG TAB PO SCH (09:00)
[2017-10-30] MEDS ORDERED: RANITIDINE HCL 150 MG TAB PO SCH (09:00)
[2017-10-30] MEDS: METHYLPREDNISOLONE IV 40 MG in SYRINGE 0 ML IV SCH ×3 (12:30→23:48)
[2017-10-30] MEDS: PSEUDOEPHEDRINE HCL 30 MG TAB PO SCH ×3 (12:30→23:48)
[2017-10-30] MEDS: METOCLOPRAMIDE HCL 10 MG TAB PO SCH ×3 (12:31→21:21)
--- NOTE | 2017-10-30 13:43 | Progress Note ---
Subjective Date of Service: Oct 30, 2017. Subjective Pt evaluation today including: conversation w/ patient, physical exam, lab review, review of inpatient medication list Pain: no pain PO Intake: adequate Voiding: no voiding problems patient feels the same, no real change since September despite rounds of steroids and antibiotics no plans for bronchoscopy, Dr. Michael will review CT chest allow to eat Problem List Medical Problems: (1) Bronchitis Status: Acute (2) Precordial chest pain Status: Acute Review of Systems Constitutional: + weakness, + fatigue Respiratory: + cough, + dyspnea on exertion All Other Systems: Reviewed and Negative Medications Current Inpatient Medications Medications (Trade) Dose Ordered Sig/Guillermo Route Start Time Stop Time Status Last Admin Dose Admin Acetaminophen (Tylenol Tab) 650 mg Q4H PRN PO 10/29/17 18:00 11/28/17 17:59 Magnesium Hydroxide (Milk Of Magnesia Susp) 30 ml Q12H PRN PO 10/29/17 18:00 11/28/17 17:59 Ondansetron HCl (Zofran Inj) 4 mg Q6H PRN IV 10/29/17 18:00 11/28/17 17:59 Levalbuterol (Xopenex 1.25MG/ 0.5ML Neb) 1.25 mg Q6R INH 10/29/17 21:00 11/28/17 20:59 10/30/17 07:51 1.25 MG Cetirizine HCl (zyrTEC TAB) 10 mg DAILY PO 10/30/17 09:00 11/29/17 08:59 10/30/17 08:50 10 MG Diphenhydramine HCl (Benadryl Cap) 25 mg DAILY PRN PO 10/29/17 18:15 11/28/17 18:14 Guaifenesin (Mucinex Contr Rel Tab) 600 mg Q12 PRN PO 10/29/17 18:00 11/28/17 17:59 10/30/17 08:50 600 MG Ipratropium [place] (Atrovent Hfa Inhaler) 2 puffs QID PRN INH 10/29/17 18:00 11/28/17 17:59 Montelukast Sodium (Singulair Tab) 10 mg HS PO 10/29/17 21:00 11/28/17 20:59 10/29/17 20:40 10 MG Promethazine HCl (Phenergan Tab) 25 mg Q6H PRN PO 10/29/17 18:00 11/28/17 17:59 Topiramate (Topamax Tab) 50 mg DAILY PO 10/30/17 09:00 11/29/17 08:59 10/30/17 08:50 50 MG Codeine Phosphate/ Guaifenesin (Robitussin-AC Sugar Free Syrup) 5 ml Q6H PRN PO 10/29/17 18:30 11/28/17 18:29 Sumatriptan Succinate (Imitrex Tab) 50 mg DAILY PRN PO 10/29/17 18:30 11/28/17 18:29 Acetylcysteine (Mucomyst 20% Inh Soln) 5 ml BIDR INH 10/29/17 20:00 11/28/17 19:59 10/30/17 07:51 5 ML Methylprednisolone Sodium Succinate 40 mg/Syringe 0.64 ml @ 1.5 mls/min Q6 IV 10/30/17 12:00 11/28/17 22:59 10/30/17 12:30 1.5 MLS/MIN Pantoprazole Sodium (Protonix Tab) 40 mg BID PO 10/30/17 21:00 11/29/17 08:59 Metoclopramide HCl (Reglan Tab) 10 mg ACHS PO 10/30/17 11:00 11/29/17 10:59 10/30/17 12:31 10 MG Arformoterol Tartrate (Brovana 15MCG/ 2ML Neb Soln) 15 mcg BIDR INH 10/30/17 20:00 11/29/17 19:59 Budesonide (Pulmicort Respules 0.5MG/ 2ML Neb Soln) 0.5 mg BIDR INH 10/30/17 20:00 11/29/17 19:59 Pseudoephedrine HCl (Sudafed Tab) 60 mg Q6H PO 10/30/17 12:00 11/29/17 11:59 10/30/17 12:30 60 MG Clarithromycin (Biaxin Tab) 500 mg DAILY PO 10/31/17 09:00 11/07/17 08:59 UNV Objective Vital Signs Date Time Temp Pulse Resp B/P (MAP) Pulse Ox O2 Delivery O2 Flow Rate FiO2 10/30/17 12:00 37.0 94 20 119/82 (94) 97 Room Air 10/30/17 08:07 36.7 92 20 129/83 (98) 99 Room Air 10/30/17 08:00 98 Room Air 10/30/17 07:46 89 16 98 Room Air 10/30/17 04:00 36.5 85 16 112/71 (85) 96 CPAP 10/30/17 04:00 Room Air 10/30/17 01:50 89 16 98 Room Air 10/30/17 00:00 36.8 91 16 130/78 (95) 96 CPAP 10/30/17 00:00 Room Air 10/29/17 22:40 104 98 10/29/17 20:11 82 16 98 Room Air 10/29/17 20:00 Room Air 10/29/17 17:56 Room Air 10/29/17 17:29 37.0 104 18 124/81 (95) 94 Room Air Physical Exam General Appearance: no apparent distress, + obese Eyes: normal inspection, EOMI, sclerae normal ENT: normal ENT inspection, hearing grossly normal, pharynx normal Neck: supple, no adenopathy, no JVD, trachea midline Respiratory/Chest: chest non-tender, lungs clear, normal breath sounds, no respiratory distress, no accessory muscle use Cardiovascular: regular rate, rhythm, no edema, no gallop, no JVD, no murmur Abdomen: normal bowel sounds, non tender, soft, no organomegaly Extremities: normal range of motion, non-tender, normal inspection, no pedal edema, no calf tenderness, pelvis stable 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, no motor/sensory deficits, alert, normal mood/affect, oriented x 3 Skin: normal color, warm/dry, no rash Lymphatic: no adenopathy Laboratory Results Last 24 Hours Test 10/30/17 05:22 10/30/17 07:35 10/30/17 10:54 10/30/17 11:47 White Blood Count 18.47 K/uL Red Blood Count 4.28 M/uL Hemoglobin 12.2 g/dL Hematocrit 36.7 % Mean Corpuscular Volume 85.7 fL Mean Corpuscular Hemoglobin 28.5 pg Mean Corpuscular Hemoglobin Concent 33.2 g/dl RDW Standard Deviation 43.3 fL RDW Coefficient of Variation 13.9 % Platelet Count 340 K/uL Mean Platelet Volume 9.0 fL Bedside Glucose 203 mg/dl 188 mg/dl Assessment and Plan 47 y/o F who was a direct admission from Dr. Juárez for severe persistent asthmatic bronchitis that has failed outpt management. severe persistent asthmatic bronchitis: xopenex and solumedrol has been on multiple courses of antibiotics and steroids as outpatient since September prior to that she reports she was symptom free for 6 months no plans for bronchoscopy today, Dr. Michael to review CT imaging recent flu swab negative CTA noted for ?? PE, but LE US neg for DVT b/l ECHO 04/2016 was WNL, t/c repeat for pulm HTN eval TATIANA: CPAP Migraines: continue home meds Reg diet for now Ambulation and SCDs for DVT proph
--- NOTE | 2017-10-30 14:22 | Pulmonary Consultation ---
History General Date of Service: Oct 30, 2017. Stated Complaint: Severe Asthmatic Bronchitis HPI The patient is a 47 year old female who presents to [facility] with complaints of Severe Asthmatic Bronchitis. The patient's primary care provider is Alexander Johnson D.O.. Historian: patient Onset: other (for the past month) Review of Systems Constitutional: reports: no symptoms Eyes: reports: tearing, discharge ENT: reports: no symptoms Cardiovascular: reports: no symptoms Respiratory: reports: cough, shortness of breath, wheezing Gastrointestinal: reports: other (heartburn) Musculoskeletal: denies: no symptoms, as stated in HPI, arthralgias, neck pain , back pain, joint pain, joint swelling, deformity, myalgias, muscle spasms, other Neurologic: denies: no symptoms, as stated in HPI, headache, dizziness, general weakness, focal weakness, numbness, tingling, paresthesia, pre-existing deficit, tremors, tics, vertigo, seizure, lethargy, memory loss, other Psychiatric: denies: no symptoms, as stated in HPI, anxiety, depression, suicidal ideation, homicidal ideation, visual hallucinations, auditory hallucinations, mood changes, alcohol abuse, drug abuse, other Past Medical History Past Medical History: History of asthma since age of 16, grew up in a house of smokers, has been treated with bronchodilators, she was managed by Dr. Juárez, she has annual visit to the hospital requiring systemic steroids, she has not been intubated for asthma exacerbation in the past, no history of exposure to molds, no cardiac history. Social History Smoking Status: Never Smoker Marital status: History of MDRO History of MDRO: No Allergies Coded Allergies: Erythromycin (Verified Adverse Reaction, Mild, VOMITING, 10/24/17) Current Medications Reported Home Medications Medications Dose Route/Sig Max Daily Dose Days Date Category Dose Instructions Prednisone 10 Mg Tab 60 Mg PO DAILY 10/24/17 Rx x3 days, 50mg PO QD x3 days, 40mg PO QD x3 days, 30mg PO QD x3 days, 20mg PO QD x3 days, then stop Breo Ellipta (Fluticasone Furoate-Vilanterol) 1 Inh Inh 1 Puff PO DIRECTED 10/24/17 Reported Promethazine Vc/Codeine (Promethaz/Phenylephrin/Codeine) 1 Ml Syrp 5-10 Ml PO Q6 PRN 10/24/17 Reported Duoneb (Ipratropium-Albuterol) 3 Ml Nebu 1 Treatment INH Q4H 10/24/17 Reported Atrovent Hfa (Ipratropium [place]) 200 Puffs/3400 Mcg Aers 2 Puffs INH QID PRN 10/24/17 Reported Zantac (Ranitidine HCl) 150 Mg Tab 150 Mg PO QAM 10/24/17 Reported Dexilant (Dexlansoprazole) 60 Mg Cap 60 Mg PO QPM 10/24/17 Reported Ventolin Inhaler (Albuterol) Aers 2 Puffs INH QID PRN 04/30/16 Rx Proventil 0.083% 2.5MG/3ML (Albuterol Sulfate) Nebu 2.5 Mg INH Q4 PRN 04/30/16 Rx Zyrtec (Cetirizine HCl) 10 Mg Tab 10 Mg PO DAILY 04/28/16 Reported Topamax (Topiramate) 50 Mg Tab 50 Mg PO DAILY 04/28/16 Reported Singulair (Montelukast Sodium) 10 Mg Tab 10 Mg PO DAILY 04/28/16 Reported Phenergan (Promethazine HCl) 25 Mg Tab 25 Mg PO Q6H PRN 04/28/16 Reported Mucinex Ext Rel (Guaifenesin) 600 Mg Tab 600 Mg PO Q12 PRN 04/28/16 Reported Imitrex (Sumatriptan Succinate) Unknown Strength Tab 1 Tab PO PRN 04/28/16 Reported Benadryl Allergy (Diphenhydramine Hcl) 25 Mg Cap 1 Cap PO DAILY PRN 30 04/28/16 Reported Physical Physical Exam Vital Signs: Date Time Temp Pulse Resp B/P (MAP) Pulse Ox O2 Delivery O2 Flow Rate FiO2 10/30/17 12:00 Room Air 10/30/17 12:00 37.0 94 20 119/82 (94) 97 Room Air 10/30/17 08:07 36.7 92 20 129/83 (98) 99 Room Air 10/30/17 08:00 98 Room Air 10/30/17 07:46 89 16 98 Room Air 10/30/17 04:00 36.5 85 16 112/71 (85) 96 CPAP 10/30/17 04:00 Room Air 10/30/17 01:50 89 16 98 Room Air 10/30/17 00:00 36.8 91 16 130/78 (95) 96 CPAP 10/30/17 00:00 Room Air 10/29/17 22:40 104 98 10/29/17 20:11 82 16 98 Room Air 10/29/17 20:00 Room Air 10/29/17 17:56 Room Air 10/29/17 17:29 37.0 104 18 124/81 (95) 94 Room Air General Appearance: WELL-APPEARING, uncomfortable Eyes: PERRLA, EOMI ENT: NORMAL MOUTH EXAM, NORMAL THROAT EXAM Neck: TRACHEA MIDLINE, NO STRIDOR Respiratory: rhonchi Cardiovasular: REGULAR RATE/RHYTHM, NORMAL S1S2, NO M/G/R, NO MURMUR Abdomen: NON TENDER, NO REBOUND Back: NORMAL INSPECTION Upper Extremities: edema Edema: LUE, LLE (1+) Neuro: ALERT, ORIENTED x 3, NORMAL MOTOR EXAM, NORMAL SENSATION Psychiatric: NORMAL AFFECT Diagnostics Labs Results Past 24 Hours Test 10/30/17 05:22 10/30/17 07:35 10/30/17 10:54 10/30/17 11:47 Range/Units White Blood Count 18.47 4.8-10.8 K/uL Red Blood Count 4.28 4.2-5.4 M/uL Hemoglobin 12.2 12.0-16.0 g/dL Hematocrit 36.7 37-47 % Mean Corpuscular Volume 85.7 80-100 fL Mean Corpuscular Hemoglobin 28.5 25-34 pg Mean Corpuscular Hemoglobin Concent 33.2 32-36 g/dl RDW Standard Deviation 43.3 36.4-46.3 fL RDW Coefficient of Variation 13.9 11.5-14.5 % Platelet Count 340 130-400 K/uL Mean Platelet Volume 9.0 7.4-10.4 fL Bedside Glucose 203 188 70-90 mg/dl Diagnostic Radiology CAT scan of the chest was performed and I have reviewed personally, which showed haziness bilaterally consistent with increased pulmonary vascular congestion versus small airway disease. Small area of metastasis in the left lower lobe only. No chest wall deformity and no infiltrates. Calcified lymphadenopathy in the subcarinal area was noted. Impression Assessment and Plan #1 chronic persistent asthma, recent exacerbation since 09/13/2017, treated with 3 courses of antibiotics and systemic steroids without benefit, the patient advised to come into the emergency room. Currently the patient started on systemic steroids as well as bronchodilators. #2 chronic rhinitis, treated with H1 blockers. #3 severe GERD treated with H2 blockers and PPI. #4 obstructive sleep apnea on CPAP at home. #5 morbid obesity with BMI more than 30. #5 calcified lymphadenopathy could be related to previous exposure to granulomatosis disease. Does not fit the picture of sarcoidosis. Plan: #1 although the patient has been treated effectively, at this point given her persistence of symptoms, she should be treated aggressively for allergic rhinitis as well as GERD. #2 in that regard, I have increased her steroids to 40 mg every 6 hours. #3 due to the inability to breathe to FRC without cough I have changed her to Brovana and Pulmicort which is easier for her to deliver the medicine by breathing to a tidal volume. #4 continue with singular. #5 obtain IgE level and hypersensitivity panel. The findings on the CAT scan goes along with asthma exacerbation and small airway disease but cannot rule out the possibility of hypersensitivity exposure. #6 due to her chronic and poorly controlled asthma, I have started the patient on Macrolides, Biaxin, daily, and this treatment is used as an anti- inflammatory for at least 6 months. If tolerable. #7 I would add a decongestant such as Sudafed to control her postnasal drip. #8 I will stop H1 magdiel as it does have no value in the treatment of cough secondary to GERD. #9 I will continue with the Protonix 40 mg by mouth twice a day. The patient is on Dexilant at home which should be given at night not in the morning. #10 I will obtain echocardiogram to evaluate for pulmonary vascular congestion and pulmonary artery pressure. #11 continue with the CPAP and the patient should use her own machine. #12 discontinue Breo. #13 continue with other bronchodilators on a regular basis. #14 case discussed at length with the patient. Thank you, will follow.
--- NOTE | 2017-10-30 16:45 | ECHOCARDIOGRAM REPORT ---
*NOTICE TO RECEIVING CONSTITUTION PARTY AGENCY This information is strictly Confidential and protected under [place] law. [place] law prohibits you from making any further disclosure of this information unless further disclosure is expressly permitted by the written consent of the person to whom it pertains or is authorized by law. A general authorization for the release of medical or other information is not sufficient for this purpose. Hospital accepts no responsibility if the information is made available to any other person, INCLUDING THE PATIENT. Interpretation Summary * Name: KHLOE BAILEY Study Date: 10/30/2017 02:31 PM BP: 119/82 mmHg * Patient Location: .[facility]\S\N285\S\2 HR: 102 * : 1970 (M/d/yyyy) Gender: Female Height: 62 in * Age: 47 yrs Ethnicity: [place] Weight: 261 lb * Ordering Physician: Kaci Kolb * Referring Physician: Javid Juárez * Performed By: Jenny Baig RDCS * * Reason For Study: Pulmonary Hypertension * BSA: 2.1 m2 * -- Conclusions -- * 1. Normal left ventricular size with hyperdynamic systolic function. EF > 70%. No regional wall motion abnormalities. Moderate concentric left ventricular hypertrophy. Type 1 diastolic dysfunction. * 2. No significant valvular abnormalities visualized, however valves were not well seen. * 3. Cannot estimate right ventricular systolic pressure as there was no significant tricuspid regurgitant jet. * 4. Technically difficult study, enhanced with IV Definity. * 5. No significant change from prior study on 04/29/2016. Procedure Details * A complete two-dimensional transthoracic echocardiogram was performed (2D, M-mode, Doppler and color flow Doppler). * The study was technically difficult. * The study was technically difficult, but visualization was adequate with the administration of Definity ultrasound contrast. * A contrast injection of Definity was performed to improve assessment of LV function. * Contrast was injected into an intravenous site in the left arm. * One vial of Definity ultrasound contrast was diluted in normal saline to a total volume of 10 ml. A total of '1' ml of solution was administered during imaging. * Lot # [id number] of Definity utilized for procedure. * Expiration date . * The attending nurse who injected the contrast agent was Camryn Davidson RN. Left Ventricle * Normal left ventricular size with hyperdynamic systolic function. EF > 70%. No regional wall motion abnormalities. Moderate concentric left ventricular hypertrophy. Type 1 diastolic dysfunction. Right Ventricle * The right ventricle is normal in size and function. * The right ventricular systolic function is normal as assessed by tricuspid annular plane systolic excursion (TAPSE) (normal >1.5 cm). Atria * The left atrial size is normal. * Right atrial size is normal. * There is no evidence of atrial septal defect, but resolution does not allow assessment for a patent foramen ovale. Mitral Valve * The mitral valve is grossly normal. * There is no mitral valve stenosis. * Significant mitral regurgitation is absent. Tricuspid Valve * The tricuspid valve is not well visualized. * There is no tricuspid stenosis. * Significant tricuspid regurgitation is absent. Aortic Valve * The aortic valve is not well visualized. * No hemodynamically significant valvular aortic stenosis. * There is no significant aortic regurgitation. Pulmonic Valve * The pulmonic valve is not well visualized. * There is no pulmonic valvular stenosis. Great Vessels * The aortic root is normal size. Pericardium/Pleural * There is no pericardial effusion. Great Vessels * Normal IVC size with reduced inspiratory collapse. MMode 2D Measurements and Calculations IVSd 1.4 cm LVIDd 3.9 cm LVIDs 2.1 cm LVPWd 1.4 cm IVS/LVPW 1.0 FS 46.6 % EDV(Teich) 65.4 ml ESV(Teich) 14.0 ml EF(Teich) 78.7 % EDV(cubed) 58.8 ml ESV(cubed) 8.9 ml EF(cubed) 84.8 % LV mass(C)d 202.6 grams LV mass(C)dI 94.7 grams/m\S\2 SV(Teich) 51.5 ml SI(Teich) 24.0 ml/m\S\2 SV(cubed) 49.8 ml SI(cubed) 23.3 ml/m\S\2 Ao root diam 2.9 cm Ao root area 6.7 cm\S\2 ACS 2.3 cm LA dimension 2.7 cm LA/Ao 0.91 Doppler Measurements and Calculations MV E max kirk 87.3 cm/sec MV A max kirk 119.6 cm/sec MV E/A 0.73 MV dec time 0.23 sec Ao V2 max 154.3 cm/sec Ao max PG 9.5 mmHg Ao max PG (full) 2.0 mmHg LV V1 max PG 7.5 mmHg LV V1 max 136.9 cm/sec PA V2 max 136.6 cm/sec PA max PG 7.5 mmHg RAP systole 8.0 mmHg
[2017-10-30] MEDS: ARFORMOTEROL TART 15MCG/2ML VIAL INH SCH (20:12)
[2017-10-30] MEDS: BUDESONIDE 0.5 MG/2 ML VIAL (PULMICORT) INH SCH (20:12)
[2017-10-30] MEDS: PANTOprazole SOD 40 MG TAB PO SCH (21:21)
[2017-10-30] MEDS: MONTELUKAST SOD 10 MG TAB PO SCH (21:21)
[2017-10-31] VITALS (10 sets, daily range): BP systolic 132–171; BP diastolic 76–93; PULSE 74–98; TEMP 36.3–36.7; O2SAT 91–99
[2017-10-31] MEDS: LEVALBUTEROL 1.25MG/0.5ML NEB INH SCH ×4 (01:49→20:35)
[2017-10-31] MEDS: METOCLOPRAMIDE HCL 10 MG TAB PO SCH ×4 (06:40→22:00)
[2017-10-31] MEDS: METHYLPREDNISOLONE IV 40 MG in SYRINGE 0 ML IV SCH ×2 (06:40→11:45)
[2017-10-31] MEDS: PSEUDOEPHEDRINE HCL 30 MG TAB PO SCH ×4 (06:40→23:46)
[2017-10-31] MEDS: CETIRIZINE HCL 10 MG TAB PO SCH (07:42)
[2017-10-31] MEDS: GUAIFENESIN 600 MG TABCR PO PRN (07:43)
[2017-10-31] MEDS: PANTOprazole SOD 40 MG TAB PO SCH ×2 (07:43→22:00)
[2017-10-31] MEDS: CLARITHROMYCIN 500 MG TAB PO SCH (07:43)
[2017-10-31] MEDS: TOPIRAMATE 50 MG TAB PO SCH (07:43)
[2017-10-31] MEDS: ACETYLCYSTEINE 20% INHAL SOLN ***DISPENSED BY RESP. INH SCH ×2 (08:00→14:12)
[2017-10-31] MEDS: ARFORMOTEROL TART 15MCG/2ML VIAL INH SCH ×2 (08:10→20:07)
[2017-10-31] MEDS: BUDESONIDE 0.5 MG/2 ML VIAL (PULMICORT) INH SCH ×2 (08:10→20:07)
[2017-10-31 09:46] LABS: HEMATOCRIT 37.2 % (37-47); HEMOGLOBIN 12.3 g/dL (12.0-16.0); MEAN CELL VOLUME 86.5 fL (80-100); MEAN CORPUSCULAR HEMOGLOBIN 28.6 pg (25-34); MEAN CORPUSCULAR HGB CONC 33.1 g/dl (32-36); MEAN PLATELET VOLUME 9.1 fL (7.4-10.4); PLATELET COUNT 323 K/uL (130-400); RED CELL DISTRIBUTION WIDTH CV 14.1 % (11.5-14.5); RED CELL DISTRIBUTION WIDTH SD 44.3 fL (36.4-46.3); WHITE BLOOD COUNT 21.89 K/uL (4.8-10.8)
[2017-10-31 10:16] LABS: CALCIUM 8.6 mg/dl (8.5-10.1); CREATININE 1.1 mg/dl (0.60-1.20); POTASSIUM 4.1 mmol/L (3.5-5.1)
[2017-10-31 12:26] LABS: HEMOGLOBIN A1C 7.3 % (4.5-5.6)
--- NOTE | 2017-10-31 13:46 | Hospitalist Progress Note ---
Hospitalist Progress Note Date of Service Oct 31, 2017. Subjective Pt evaluation today including: conversation w/ patient, physical exam, chart review, lab review, review of inpatient medication list Pain: None PO Intake: Tolerating PO diet Voiding: no voiding problems Patient reports feeling better today. She states she was able to ambulate in the hallway a bit further today with less coughing and MINA. She denies any SOB or coughing at rest now, stating these only occur during exertion. She feels less weak today and states that her hoarseness is also improved. The patient denies fevers, chills, sweats, chest pain, palpitations, claudication, wheezing , shortness of breath at rest, nausea, vomiting, abdominal pain, dysuria, hematuria, urinary retention, paralysis, weakness, numbness and tingling. Additional Comments: See HPI for pertinent positives and negatives. All other systems reviewed and negative. Objective Vital Signs Date Time Temp Pulse Resp B/P (MAP) Pulse Ox O2 Delivery O2 Flow Rate FiO2 10/31/17 11:23 36.7 90 18 143/80 (101) 98 Room Air 10/31/17 08:10 74 16 97 Room Air 10/31/17 08:00 Room Air 10/31/17 08:00 36.4 79 18 171/93 (119) 98 Room Air 98 10/31/17 04:00 Room Air 10/31/17 01:49 80 16 98 Room Air 10/31/17 00:12 36.3 88 18 132/83 (99) 94 Room Air 10/31/17 00:00 Room Air 10/30/17 22:55 83 98 10/30/17 20:12 91 16 98 Room Air 10/30/17 20:00 Room Air 10/30/17 19:19 36.6 100 24 158/89 (112) 98 Room Air 10/30/17 16:00 Room Air 10/30/17 15:32 36.6 95 20 124/80 (95) 96 Room Air 10/30/17 14:21 102 16 98 Room Air Physical Exam Notes: General appearance: +Morbidly obese. Well-developed, well-nourished, no apparent distress Head: Normocephalic, atraumatic Eyes: Normal inspection, PERRL, EOMI ENT: Normal ENT inspection, hearing grossly normal, pharynx normal Neck: Supple, no JVD, trachea midline Respiratory/Chest: +Diminished breath sounds. Lungs clear to auscultation, no respiratory distress Cardiovascular: Regular rate & rhythm, no gallop, no murmur Abdomen/GI: Normal bowel sounds, non-tender, soft Extremities/Musculoskeletal: Normal inspection, no calf tenderness, no pedal edema Neurological/Psych: Alert, normal mood/affect, oriented x 3 Skin: Normal color, warm/dry, no rash Laboratory Results Last 24 Hours Test 10/30/17 15:16 10/30/17 16:16 10/30/17 20:28 10/31/17 09:34 Bedside Glucose 250 mg/dl 240 mg/dl White Blood Count 21.89 K/uL Red Blood Count 4.30 M/uL Hemoglobin 12.3 g/dL Hematocrit 37.2 % Mean Corpuscular Volume 86.5 fL Mean Corpuscular Hemoglobin 28.6 pg Mean Corpuscular Hemoglobin Concent 33.1 g/dl RDW Standard Deviation 44.3 fL RDW Coefficient of Variation 14.1 % Platelet Count 323 K/uL Mean Platelet Volume 9.1 fL Sodium Level 136 mmol/L Potassium Level 4.1 mmol/L Chloride Level 104 mmol/L Carbon Dioxide Level 23 mmol/L Anion Gap 8.0 mmol/L Blood Urea Nitrogen 16 mg/dl Creatinine 1.10 mg/dl Est Creatinine Clear Calc Drug Dose 78.9 ml/min Estimated GFR () 70.2 Estimated GFR (Non- 60.6 BUN/Creatinine Ratio 14.6 Random Glucose 355 mg/dl Estimated Average Glucose 163 mg/dl Hemoglobin A1c 7.3 % Calcium Level 8.6 mg/dl Beta-Hydroxybutyric Acid 1.24 mg/dL Test 10/31/17 11:45 Bedside Glucose 211 mg/dl Assessment and Plan 47 y/o female with a history of asthma, TATIANA, migraines and GERD who presents for direct admission from Dr. Juárez with severe persistent asthmatic bronchitis failing multiple outpatient treatments. Severe persistent asthmatic bronchitis--improving -Admit to telemetry. No acute events overnight. Pt in sinus rhythm with HR 80s -90s -No plans for bronchoscopy per Dr. Michael -Pulmonology consulted, appreciate recs: Increase steroids to 40 mg q6h. D/C Breo, change to Brovana and Pulmicort. Check IgE and hypersensitivity panel. Biaxin for at least 6 months. Recommend Sudafed for postnasal drip. Stop H1 magdiel. Check echo to evaluate for pulmonary vascular congestion and pulmonary artery pressure. -Continue Solu-Medrol 40 mg IV q6h -Continue Xopenex nebs q6r, Mucomyst BID, Sudafed 60 mg PO q6h, Singulair 10 mg PO qd, Zyrtec 10 mg PO qd -Breo d/c'd. Continue Brovana BID, Pulmicort BID -Continue clarithromycin 500 mg PO qd -Continue Robitussin AC prn cough, Mucinex BID prn congestion -Echo shows LVEF over 70%. Moderate LVH. Type 1 diastolic dysfunction. Cannot estimate right ventricular systolic pressure. TATIANA -CPAP Migraines--stable -Continue Topamax 50 mg PO qd, Imitrex prn GERD -Zantac d/c'd -Continue Protonix BID DVT prophylaxis -SCDs
[2017-10-31] MEDS ORDERED: INSULIN GLARGINE SOLOSTAR 100 UNITS/ML 3 ML PEN SC ONE (14:15)
--- NOTE | 2017-10-31 17:52 | Pulmonology Progress Note ---
Pulmonary Progress Note Date of Service Oct 31, 2017. Attending Dr. Kolb Subjective The patient is feeling better, she denies any shortness of breath with exertion , cough has been improving as well. She did not produce any sputum. No hemoptysis is reported. Objective Stable vital signs, O2 saturation 95% on room air, distant breath sounds bilaterally, no wheezing, S1-S2 regular rate and rhythm, abdomen is benign no edema. Assessment & Plan #1 chronic persistent asthma, exacerbated by GERD and rhinitis. #2 allergic rhinitis in which she has been maintained on Singulair. #3 GERD, severe with significant reflux related cough. #4 obstructive sleep apnea on home CPAP. #5 calcified mediastinal lymph nodes of unknown etiology. Plan: #1 I will change prednisone to 40 mg by mouth twice a day. #2 continue with Reglan before meals and at bedtime in addition to PPI twice daily for total of 4 weeks. #3 continue with cetirizine, Sudafed 120 mg by mouth twice a day for total of 14 days. #4 IgE and hypersensitivity panel are still pending. #5 no need for bronchoscopy. #6 continue CPAP as she is doing at home. #7 anticipate discharge to home. #8 echocardiogram did not show pulmonary hypertension. Discussed with the patient in details. She will need a note for her work. Thank you, will follow. Data Medications: Current Inpatient Medications Medications (Trade) Dose Ordered Sig/Guillermo Route Start Time Stop Time Status Last Admin Dose Admin Acetaminophen (Tylenol Tab) 650 mg Q4H PRN PO 10/29/17 18:00 11/28/17 17:59 Magnesium Hydroxide (Milk Of Magnesia Susp) 30 ml Q12H PRN PO 10/29/17 18:00 11/28/17 17:59 Ondansetron HCl (Zofran Inj) 4 mg Q6H PRN IV 10/29/17 18:00 11/28/17 17:59 Levalbuterol (Xopenex 1.25MG/ 0.5ML Neb) 1.25 mg Q6R INH 10/29/17 21:00 11/28/17 20:59 10/31/17 14:11 1.25 MG Cetirizine HCl (zyrTEC TAB) 10 mg DAILY PO 10/30/17 09:00 11/29/17 08:59 10/31/17 07:42 10 MG Diphenhydramine HCl (Benadryl Cap) 25 mg DAILY PRN PO 10/29/17 18:15 11/28/17 18:14 Guaifenesin (Mucinex Contr Rel Tab) 600 mg Q12 PRN PO 10/29/17 18:00 11/28/17 17:59 10/31/17 07:43 600 MG Ipratropium [place] (Atrovent Hfa Inhaler) 2 puffs QID PRN INH 10/29/17 18:00 11/28/17 17:59 Montelukast Sodium (Singulair Tab) 10 mg HS PO 10/29/17 21:00 11/28/17 20:59 10/30/17 21:21 10 MG Promethazine HCl (Phenergan Tab) 25 mg Q6H PRN PO 10/29/17 18:00 11/28/17 17:59 Topiramate (Topamax Tab) 50 mg DAILY PO 10/30/17 09:00 11/29/17 08:59 10/31/17 07:43 50 MG Codeine Phosphate/ Guaifenesin (Robitussin-AC Sugar Free Syrup) 5 ml Q6H PRN PO 10/29/17 18:30 11/28/17 18:29 Sumatriptan Succinate (Imitrex Tab) 50 mg DAILY PRN PO 10/29/17 18:30 11/28/17 18:29 Acetylcysteine (Mucomyst 20% Inh Soln) 5 ml BIDR INH 10/29/17 20:00 11/28/17 19:59 10/31/17 14:12 5 ML Methylprednisolone Sodium Succinate 40 mg/Syringe 0.64 ml @ 1.5 mls/min Q6 IV 10/30/17 12:00 11/28/17 22:59 10/31/17 11:45 1.5 MLS/MIN Pantoprazole Sodium (Protonix Tab) 40 mg BID PO 10/30/17 21:00 11/29/17 08:59 10/31/17 07:43 40 MG Metoclopramide HCl (Reglan Tab) 10 mg ACHS PO 10/30/17 11:00 11/29/17 10:59 10/31/17 16:28 10 MG Arformoterol Tartrate (Brovana 15MCG/ 2ML Neb Soln) 15 mcg BIDR INH 10/30/17 20:00 11/29/17 19:59 10/31/17 08:10 15 MCG Budesonide (Pulmicort Respules 0.5MG/ 2ML Neb Soln) 0.5 mg BIDR INH 10/30/17 20:00 11/29/17 19:59 10/31/17 08:10 0.5 MG Pseudoephedrine HCl (Sudafed Tab) 60 mg Q6H PO 10/30/17 12:00 11/29/17 11:59 10/31/17 11:30 60 MG Clarithromycin (Biaxin Tab) 500 mg DAILY PO 10/31/17 09:00 11/07/17 08:59 10/31/17 07:43 500 MG Insulin Aspart (novoLOG ASPART) SLIDING SCALE G... ACHS SC 10/31/17 16:30 11/30/17 16:29 I & O: 24-Hour Column 11/01/17 07:59 Intake Total 635 ml Output Total 950 ml Balance -315 ml Vital Signs: Date Time Temp Pulse Resp B/P (MAP) Pulse Ox O2 Delivery O2 Flow Rate FiO2 10/31/17 14:53 36.6 91 20 136/76 (96) 91 Room Air 10/31/17 14:12 96 18 98 Room Air 10/31/17 12:00 Room Air 10/31/17 11:23 36.7 90 18 143/80 (101) 98 Room Air 10/31/17 08:10 74 16 97 Room Air 10/31/17 08:00 Room Air 10/31/17 08:00 36.4 79 18 171/93 (119) 98 Room Air 98 10/31/17 04:00 Room Air 10/31/17 01:49 80 16 98 Room Air 10/31/17 00:12 36.3 88 18 132/83 (99) 94 Room Air 10/31/17 00:00 Room Air 10/30/17 22:55 83 98 10/30/17 20:12 91 16 98 Room Air 10/30/17 20:00 Room Air 10/30/17 19:19 36.6 100 24 158/89 (112) 98 Room Air Laboratory Results: Last 24 Hours Test 10/30/17 20:28 10/31/17 09:34 10/31/17 11:45 10/31/17 16:24 Bedside Glucose 240 mg/dl 211 mg/dl 341 mg/dl White Blood Count 21.89 K/uL Red Blood Count 4.30 M/uL Hemoglobin 12.3 g/dL Hematocrit 37.2 % Mean Corpuscular Volume 86.5 fL Mean Corpuscular Hemoglobin 28.6 pg Mean Corpuscular Hemoglobin Concent 33.1 g/dl RDW Standard Deviation 44.3 fL RDW Coefficient of Variation 14.1 % Platelet Count 323 K/uL Mean Platelet Volume 9.1 fL Sodium Level 136 mmol/L Potassium Level 4.1 mmol/L Chloride Level 104 mmol/L Carbon Dioxide Level 23 mmol/L Anion Gap 8.0 mmol/L Blood Urea Nitrogen 16 mg/dl Creatinine 1.10 mg/dl Est Creatinine Clear Calc Drug Dose 78.9 ml/min Estimated GFR () 70.2 Estimated GFR (Non- 60.6 BUN/Creatinine Ratio 14.6 Random Glucose 355 mg/dl Estimated Average Glucose 163 mg/dl Hemoglobin A1c 7.3 % Calcium Level 8.6 mg/dl Beta-Hydroxybutyric Acid 1.24 mg/dL
[2017-10-31] MEDS ORDERED: NURSING VERBAL MED ORDER ONE (18:30)
[2017-10-31] MEDS: INSULIN ASPART 100 UNITS/ML 3 ML PEN SC SCH ×2 (18:49→22:02)
[2017-10-31] MEDS: MONTELUKAST SOD 10 MG TAB PO SCH (22:00)
[2017-11-01 01:55] VITALS: PULSE 74; O2SAT 98
[2017-11-01] MEDS: LEVALBUTEROL 1.25MG/0.5ML NEB INH SCH ×3 (01:55→14:15)
[2017-11-01 04:32] VITALS: BP 126/80; PULSE 76; TEMP 36.6; O2SAT 99
[2017-11-01] MEDS: METOCLOPRAMIDE HCL 10 MG TAB PO SCH ×2 (06:22→11:32)
[2017-11-01] MEDS: PSEUDOEPHEDRINE HCL 30 MG TAB PO SCH ×2 (06:22→11:32)
[2017-11-01] MEDS: BUDESONIDE 0.5 MG/2 ML VIAL (PULMICORT) INH SCH (07:01)
[2017-11-01] MEDS: ARFORMOTEROL TART 15MCG/2ML VIAL INH SCH (07:01)
[2017-11-01 07:03] VITALS: PULSE 75; O2SAT 97
[2017-11-01 07:30] VITALS: BP 149/90; PULSE 75; TEMP 36.9; O2SAT 97
[2017-11-01] MEDS: CLARITHROMYCIN 500 MG TAB PO SCH (07:56)
[2017-11-01] MEDS: PANTOprazole SOD 40 MG TAB PO SCH (07:56)
[2017-11-01] MEDS: CETIRIZINE HCL 10 MG TAB PO SCH (07:57)
[2017-11-01] MEDS: TOPIRAMATE 50 MG TAB PO SCH (07:57)
[2017-11-01] MEDS: INSULIN ASPART 100 UNITS/ML 3 ML PEN SC SCH ×2 (08:37→12:28)
[2017-11-01] MEDS ORDERED: RGL10 PO (13:54)
[2017-11-01] MEDS ORDERED: NVLNI SC (13:54)
[2017-11-01] MEDS ORDERED: PLMINS INH (13:54)
[2017-11-01] MEDS ORDERED: [UNRECOGNIZED DRUG - CODE] SC (13:54)
[2017-11-01] MEDS ORDERED: ARFO15NE INH (13:54)
[2017-11-01] MEDS ORDERED: PRT40 PO (13:54)
[2017-11-01] MEDS ORDERED: LANC-393 (13:54)
[2017-11-01] MEDS ORDERED: PSEU1TAB2 PO (13:54)
[2017-11-01] MEDS ORDERED: PRD10 PO (13:54)
[2017-11-01] MEDS ORDERED: BXN500 PO (13:54)
--- NOTE | 2017-11-01 14:06 | Discharge Instructions ---
Discharge Instructions Date of Service Nov 01, 2017. Admission Reason for Admission: Severe Asthmatic Bronchitis Discharge Discharge Diagnosis / Problem: Severe asthmatic bronchitis Discharge Goals Goal(s): Decrease discomfort, Improve function, Diagnostic testing, Therapeutic intervention Activity Recommendations Activity Limitations: resume your previous activity (as tolerated) . Instructions / Follow-Up Instructions / Follow-Up You were admitted to the hospital after presenting with severe asthmatic bronchitis that had failed outpatient therapy. You were evaluated and followed by pulmonology while inpatient, and many changes were made to your home regimen. As you are feeling and breathing better, you are now medically stable for discharge. Medications: *STOP Breo. This has been replaced by two nebulizer treatments. Please instead use Brovana nebulizer twice a day and Pulmicort nebulizer twice a day. *You have been placed on the following prednisone taper: -Take 40 mg (4 tablets) by mouth twice a day for 5 days, then -Take 20 mg (2 tablets) by mouth twice a day for 5 days, then -Take 20 mg (2 tablets) by mouth once a day in the morning for 5 days, then -Take 10 mg (1 tablet) by mouth once a day in the morning for 5 days, then stop. *The steroids have caused your blood sugars to be high. You have been prescribed a type of insulin to take AT THE SAME TIME as your prednisone to control your sugars. -Take 45 units Novolin N subcutaneously twice a day for 5 days, then -Take 25 units subcutaneously twice a day for 5 days, then -Take 25 units subcutaneously once a day for 5 days, then -Take 15 units subcutaneously once a day for 5 days *You have been given a glucometer by the dental service technician. You have been prescribed test strips and lancets to go with it to check your blood sugars twice a day while on the above insulin regimen. *Please take clarithromycin 500 mg daily. This is an antibiotic that pulmonology recommended you take for at least 6 months. You have been provided with the first month. *Please take metoclopramide (Reglan) 10 mg 4 times a day (before each meal and before bedtime) in addition with the pantoprazole (Protonix) 40 mg twice a day for 4 weeks to treat your acid reflux. STOP Dexilant and Zantac. *Please take Sudafed 120 mg by mouth twice a day for 14 days in addition to your daily Zyrtec. *Continue your other medications as prescribed. Follow up: *Keep your previously scheduled appointment with Judy Curtis of pulmonology next week. *You will be scheduled to follow up with your primary care provider following discharge regarding your blood sugar control. Current Hospital Diet Patient's current hospital diet: Regular Diet Discharge Diet Recommended Diet: Diabetes Type 2 Diet Pending Studies Studies pending at discharge: no Laboratory Results Hemoglobin A1c Test 10/31/17 09:34 Range/Units Estimated Average Glucose 163 mg/dl Hemoglobin A1c 7.3 H 4.5-5.6 % Medical Emergencies . Who to Call and When: Medical Emergencies: If at any time you feel your situation is an emergency, please call 911 immediately. . Non-Emergent Contact Non-Emergency issues call your: Primary Care Provider, Cfo Controller Call Non-Emergent contact if: you have a fever, you have any medication questions . Past History Medical & Surgical History: (1) Severe persistent asthmatic bronchitis with exacerbation . "Provider Documentation" section prepared by Leilani Castillo. . VTE Core Measure Inpt VTE Proph given/why not?: SCD's
[2017-11-01 14:10] VITALS: BP 149/90; PULSE 75; TEMP 36.9; O2SAT 97
[2017-11-01 14:16] VITALS: PULSE 80; O2SAT 98
--- NOTE | 2017-11-01 14:27 | Discharge Summary ---
Discharge Summary Date of Service Nov 01, 2017. Discharge Summary Admission Date: Oct 29, 2017 at 17:17 Discharge Date: Nov 01, 2017 Discharge Disposition: Home Principal Diagnosis: Severe asthmatic bronchitis Problems/Secondary Diagnoses: TATIANA, migraines, GERD Procedures: Interpretation Summary * Name: KHLOE BAILEY Study Date: 10/30/2017 02:31 PM BP: 119/82 mmHg * Patient Location: [facility]\S\N285\S\2 HR: 102 * : 1970 (M/d/yyyy) Gender: Female Height: 62 in * Age: 47 yrs Ethnicity: [place] Weight: 261 lb * Ordering Physician: Kaci Kolb * Referring Physician: Javid Juárez * Performed By: Jenny Baig RDCS * * Reason For Study: Pulmonary Hypertension * BSA: 2.1 m2 * -- Conclusions -- * 1. Normal left ventricular size with hyperdynamic systolic function. EF > 70% . No regional wall motion abnormalities. Moderate concentric left ventricular hypertrophy. Type 1 diastolic dysfunction. * 2. No significant valvular abnormalities visualized, however valves were not well seen. * 3. Cannot estimate right ventricular systolic pressure as there was no significant tricuspid regurgitant jet. * 4. Technically difficult study, enhanced with IV Definity. * 5. No significant change from prior study on 04/29/2016. Procedure Details * A complete two-dimensional transthoracic echocardiogram was performed (2D, M- mode, Doppler and color flow Doppler). * The study was technically difficult. * The study was technically difficult, but visualization was adequate with the administration of Definity ultrasound contrast. * A contrast injection of Definity was performed to improve assessment of LV function. * Contrast was injected into an intravenous site in the left arm. * One vial of Definity ultrasound contrast was diluted in normal saline to a total volume of 10 ml. A total of '1' ml of solution was administered during imaging. * Lot # [id number] of Definity utilized for procedure. * Expiration date . * The attending nurse who injected the contrast agent was Camryn Davidson RN. Left Ventricle * Normal left ventricular size with hyperdynamic systolic function. EF > 70%. No regional wall motion abnormalities. Moderate concentric left ventricular hypertrophy. Type 1 diastolic dysfunction. Right Ventricle * The right ventricle is normal in size and function. * The right ventricular systolic function is normal as assessed by tricuspid annular plane systolic excursion (TAPSE) (normal >1.5 cm). Atria * The left atrial size is normal. * Right atrial size is normal. * There is no evidence of atrial septal defect, but resolution does not allow assessment for a patent foramen ovale. Mitral Valve * The mitral valve is grossly normal. * There is no mitral valve stenosis. * Significant mitral regurgitation is absent. Tricuspid Valve * The tricuspid valve is not well visualized. * There is no tricuspid stenosis. * Significant tricuspid regurgitation is absent. Aortic Valve * The aortic valve is not well visualized. * No hemodynamically significant valvular aortic stenosis. * There is no significant aortic regurgitation. Pulmonic Valve * The pulmonic valve is not well visualized. * There is no pulmonic valvular stenosis. Great Vessels * The aortic root is normal size. Pericardium/Pleural * There is no pericardial effusion. Great Vessels * Normal IVC size with reduced inspiratory collapse. Medication Reconciliation New Medications: Insulin Human NPH (Novolin N) 100 Units/Ml Susp 1 DOSE SC UD for 20 Days, #900 UNITS 45 units twice daily x 5 days, 25 units twice daily x 5 days, 25 units once daily x 5 days, 15 units once daily x 5 days Insulin Syringe/Needle U-100 (Bd Insulin Syringe Ultraf) 1 Mis Mis BOX SC UD, #1 To use with Novolin as directed Lancets (Onetouch Delica Lancets) 1 Mis Mis UNIT, #1 1 check twice a day x 3 weeks Prednisone (Prednisone) 10 Mg Tab 10 MG PO UD for 20 Days, #75 TAB 40 mg twice daily x 5 days, 20 mg twice daily x 5 days, 20 mg once daily x 5 days, 10 mg once daily x 5 days Pseudoephedrine Hcl (Sudafed) 60 Mg Tab 120 MG PO BID for 14 Days, #56 TAB Arformoterol Tartrate (Brovana) 15 Mcg/2 Ml Neb 15 MCG INH BIDR for 30 Days, #60 DOSE Budesonide (Inhalation) (Pulmicort Respules 0.5MG/2ML) 0.5 Mg/2 Ml [place] 0.5 MG INH BIDR for 30 Days, #60 DOSE Clarithromycin (Clarithromycin) 500 Mg Tab 500 MG PO DAILY for 30 Days, #30 TAB Metoclopramide HCl (Metoclopramide HCl) 10 Mg Tab 10 MG PO ACHS for 28 Days, #1120 TAB Pantoprazole (Pantoprazole Sodium) 40 Mg Tab 40 MG PO BID for 30 Days, #60 TAB Continued Medications: Albuterol Inhaler (Ventolin Inhaler) Aers 2 PUFFS INH QID PRN for SOB/Wheezing, #1 INHALER 4 Refills Albuterol Soln (Proventil 0.083% 2.5MG/3ML) Nebu 2.5 MG INH Q4 PRN for SOB/Wheezing, #1 BOX Cetirizine (Zyrtec) 10 Mg Tab 10 MG PO DAILY, TAB Diphenhydramine Hcl (Benadryl Allergy) 25 Mg Cap 1 CAP PO DAILY PRN for ALLERGIC REACTION for 30 Days, #30 CAP Guaifenesin Ext Rel (Mucinex Ext Rel) 600 Mg Tab 600 MG PO Q12 PRN for CONGESTION, TAB Ipratropium [place] (Atrovent Hfa) 200 Puffs/3400 Mcg Aers 2 PUFFS INH QID PRN for PRN, #12.9 GM 3 Refills Montelukast Sodium (Singulair) 10 Mg Tab 10 MG PO DAILY, TAB Promethaz/Phenylephrin/Codeine (Promethazine Vc/Codeine) 1 Ml Syrp 5-10 ML PO Q6 PRN for Cough, #120 ML Promethazine Hcl (Phenergan) 25 Mg Tab 25 MG PO Q6H PRN for Nausea, TAB Sumatriptan Succinate (Imitrex) Unknown Strength Tab 1 TAB PO PRN for Migraine, TAB Topiramate (Topamax) 50 Mg Tab 50 MG PO DAILY, TAB Discontinued Medications: Dexlansoprazole (Dexilant) 60 Mg Cap 60 MG PO QPM Fluticasone Furoate-Vilanterol (Breo Ellipta) 1 Inh Inh 1 PUFF PO DIRECTED Ipratropium-Albuterol (Duoneb) 3 Ml Nebu 1 TREATMENT INH Q4H, INHA Prednisone Tab (Prednisone) 10 Mg Tab 60 MG PO DAILY, #60 TAB x3 days, 50mg PO QD x3 days, 40mg PO QD x3 days, 30mg PO QD x3 days, 20mg PO QD x3 days, then stop Ranitidine (Zantac) 150 Mg Tab 150 MG PO QAM, TAB Discharge Exam The patient reports feeling well and continues to improve each day. She ambulated twice in the hallway this morning without any SOB or MINA and only minimal coughing. She denies any complaints currently. Constitutional: No fever, No chills, No sweats Eyes: No worsening of vision, No eye pain, No diplopia ENT: No hearing loss, No nasal symptoms, No trouble swallowing Respiratory: +Cough resolving. No wheezing, No shortness of breath Cardiovascular: No chest pain, No claudication, No palpitations Abdomen: No pain, No nausea, No vomiting Musculoskeletal: No joint pain, No muscle pain, No swelling Genitourinary - Female: No dysuria, No urinary retention, No hematuria Neurologic: No paralysis, No weakness, No numbness/tingling Integumentary: No rash, No itch, No color change General appearance: +Morbidly obese. Well-developed, well-nourished, no apparent distress Head: Normocephalic, atraumatic Eyes: Normal inspection, PERRL, EOMI ENT: Normal ENT inspection, hearing grossly normal, pharynx normal Neck: Supple, no JVD, trachea midline Respiratory/Chest: +Diminished breath sounds. Lungs clear to auscultation, no respiratory distress Cardiovascular: Regular rate & rhythm, no gallop, no murmur Abdomen/GI: Normal bowel sounds, non-tender, soft Extremities/Musculoskeletal: Normal inspection, no calf tenderness, no pedal edema Neurological/Psych: Alert, normal mood/affect, oriented x 3 Skin: Normal color, warm/dry, no rash Hospital Course 47 y/o female with a history of asthma, TATIANA, migraines and GERD who presents for direct admission from Dr. Juárez with severe persistent asthmatic bronchitis failing multiple outpatient treatments. Severe persistent asthmatic bronchitis--improving -Admit to telemetry. No acute events overnight. Pt in sinus rhythm with HR 80s -90s. Transferred to medical -No plans for bronchoscopy per Dr. Michael -Pulmonology consulted, appreciate recs: Change steroids to prednisone 40 mg PO BID. Continue Reglan ACHS in addition to PPI BID x 4 weeks. Continue Zyrtec and Sudafed BID x 14 days. Biaxin for at least 6 months. -Solu-Medrol d/c'd, started on prednisone 40 mg PO BID -Prednisone taper over 3 weeks: 40 mg PO BID x 5 days, 20 mg PO BID x 5 days, 20 mg PO qd x 5 days, 10 mg PO qd x 5 days, then stop -Mucomyst d/c'd -Home w/Flora, Denysbrenda Sudafed 120 mg PO BID x 14 days, -Breo d/c'd. Continue Brovana BID, Pulmicort BID -Continue clarithromycin 500 mg PO qd x 6 months. First month sent to pharmacy -Continue Mucinex BID prn congestion -Echo shows LVEF over 70%. Moderate LVH. Type 1 diastolic dysfunction. Cannot estimate right ventricular systolic pressure. DM II--HgbA1c 7.3 while inpatient due to 2 months of non-stop steroid use -D/C with Novolin to take with prednisone per pharmacy recs -Novolin taper: 45 units SC BID x 5 days, 25 u SC BID x 5 days, 25 u SC qd x 5 days, 15 u SC qd x 5 days -Met w/special education paraeducator, taught to check BSG BID and how to inject the insulin TATIANA -CPAP Migraines--stable -Continue Topamax 50 mg PO qd, Imitrex prn GERD -Zantac d/c'd -Continue Protonix BID with Reglan 10 mg before meals and bedtime x 4 weeks DVT prophylaxis -SCDs Total Time Spent: Greater than 30 minutes This includes examination of the patient, discharge planning, medication reconciliation, and communication with other providers. Discharge Instructions Please refer to the electronic Patient Visit Report (Discharge Instructions) for additional information. Additional Copies To Judy Curtis PA-C; Alexander Johnson D.O.
[2017-11-01 15:49] VITALS: Ht 157.5 cm; Wt 118.4 kg
== END 2017-11-01 14:56 | disposition home or self-care (01) | DRG 202 ==
LOC: C.MED 17:17 → UNDOADMIN 17:17 → C.MED 11-01 06:16
PROVIDERS: ADMIT Family Medicine; ATTEND Internal Medicine
DX: J45.51 Severe persistent asthma with (acute) exacerbation (principal); Z68.42 Body mass index [BMI] 45.0-49.9, adult; R73.9 Hyperglycemia, unspecified; T38.0X5A Adverse effect of glucocorticoids and synthetic analogues, initial encounter; K21.9 Gastro-esophageal reflux disease without esophagitis; I89.8 Other specified noninfective disorders of lymphatic vessels and lymph nodes; J31.0 Chronic rhinitis; G43.909 Migraine, unspecified, not intractable, without status migrainosus; E66.01 Morbid (severe) obesity due to excess calories; G47.33 Obstructive sleep apnea (adult) (pediatric); Z99.81 Dependence on supplemental oxygen; Z77.22 Contact with and (suspected) exposure to environmental tobacco smoke (acute) (chronic); Z79.51 Long term (current) use of inhaled steroids; Z79.52 Long term (current) use of systemic steroids; Z79.899 Other long term (current) drug therapy; Z88.1 Allergy status to other antibiotic agents

== ENCOUNTER → 2017-12-02 | Day surgery (SDC) | payer OTHER ==
[2017-11-15 07:48] VITALS: Ht 157.5 cm; Wt 120.5 kg
[~2017-12-02] VITALS: Ht 157.5 cm; Wt 120.5 kg
[~2017-12-02] MED LIST changes: +ALBINS INH; -ALBU0.08 INH; +ALBU0.633 NEB; -ALBUAER19 INH; +ARFO15NE INH; +CETI10TA10 PO; -CETI10TA84 PO; +CLAR500T38 PO; -DEXL60CA4 PO; +FERR325T5 PO; -FLUT1INH PO; -GUAI1TAB55 PO; +HYDR0.75 PO; +IMITREX PO; +INSUINJ20 SC; -IPRASOL4 INH; +LIDOCAINE HCL 2% 2 ML VIAL (20MG/ML) ONE; +METO-157 PO; +MIDAZOLAM HCL 1 MG/ML 2ML VIAL ONE; +MOME6000 NAE; +PANT40TA PO; -PHENSYP13 PO; +PLMINSR5 INH; +PROB1TAB16 PO; +PROPOFOL IV EMULSION 10 MG/ML 20 ML VIAL IV ONE; +PSEU60TA26 PO; +PSEU60TA80 PO; -RANI150T85 PO; +SODIUM CHLORIDE 0.9% 500ML 500 ML IV ONE; -SUMA25TA12 PO; +VNTHFA/IN INH
--- NOTE | 2017-12-02 15:54 | Endo History and Physical ---
History & Physical Date of Service: Dec 02, 2017. Chief Complaint: REFLUX Referring Physician: DR ASHRAF History of Present Illness 47 yo CF who presents for EGD secondary to GERD. Past Surgical History Hx Cardiac Surgery: No Hx Internal Defibrillator: No Hx Pacemaker: No Hx Abdominal Surgery: Yes (GASTRIC BYPASS) Hx of Implantable Prosthesis: No Hx Post-Op Nausea and Vomiting: No Hx Cancer Surgery: No Hx Thoracic Surgery: No Hx Orthopedic: No Hx Urinary Tract Surgery: Yes (URETER CORRECTION/CYSTOSCOPY ( A CHILD)) Family History Colon CA Social History Smoking Status: Never Smoker Hx Substance Use: No Hx Alcohol Use: Yes (OCCASIONAL) Allergies Coded Allergies: Erythromycin (Verified Adverse Reaction, Mild, VOMITING, 12/02/17) Current Medications Reported Home Medications Medications Dose Route/Sig Max Daily Dose Days Date Category Probiotic (Probiotic Product) 1 Tab Tab 1 Tab PO QAM 11/15/17 Reported Zyrtec (Cetirizine Hcl) 10 Mg Tab 10 Mg PO BID 11/15/17 Reported Ventolin Hfa (Albuterol) 200 Puffs/84200 Mcg Aers 2-4 Puffs INH Q6H PRN 11/15/17 Reported Topamax (Topiramate) 50 Mg Tab 50 Mg PO HS 11/15/17 Reported Singulair (Montelukast Sodium) 10 Mg Tab 10 Mg PO HS 11/15/17 Reported Pseudoephedrine Hcl 60 Mg Tab 1 Tab PO BID 11/15/17 Reported Phenergan (Promethazine HCl) 25 Mg Tab 25 Mg PO Q4H PRN 11/15/17 Reported Protonix (Pantoprazole Sodium) 40 Mg Tab 40 Mg PO BID 11/15/17 Reported Mucinex D (Pseudoephedrine-Guaifenesin) 1 Tab Tab 600 Mg PO BID 11/15/17 Reported Mometasone Furoate (Mometasone Furoate (Nasal)) 50 Mcg/Act Spr 1 [place] MACK BID PRN 11/15/17 Reported Reglan (Metoclopramide HCl) 10 Mg Tab 10 Mg PO ACHS 11/15/17 Reported [Imitrex] 1 Tab PO DIRECTED PRN 11/15/17 Reported Hydromet (Hydrocodone Bit/Homatropine Methylb) 1 Ml Syrp 5-10 Ml PO QID PRN 11/15/17 Reported Ferrous Sulfate 325 Mg Tab 1 Tab PO BID 11/15/17 Reported Biaxin (Clarithromycin) 500 Mg Tab 1 Tab PO QAM 11/15/17 Reported Pulmicort Respules 0.5MG/2ML (Budesonide) 0.5 Mg/2 Ml Nebu 2 Ml INH BID 11/15/17 Reported Brovana (Arformoterol Tartrate) 15 Mcg/2 Ml Neb 15 Mcg INH BID 11/15/17 Reported Benadryl Allergy (Diphenhydramine Hcl) 25 Mg Cap 1 Cap PO HS 11/15/17 Reported Atrovent Hfa (Ipratropium [place]) 200 Puffs/3400 Mcg Aers 2 Puffs INH QID PRN 11/15/17 Reported Albuterol Sulfate 0.63 Mg/3 Ml Neb 1 Vial NEB QID PRN 11/15/17 Reported Albuterol Sulfate (Albuterol Sulf) 2.5 Mg/3 Ml Nebu 1 Dose INH Q4H PRN 11/15/17 Reported Vital Signs Weight (Kilograms): 120.45 Height (Feet): 5 Height (Inches): 2 Date Time Temp Pulse Resp B/P (MAP) Pulse Ox O2 Delivery O2 Flow Rate FiO2 12/02/17 14:52 36.7 106 20 148/90 (109) 98 Room Air Physical Exam General Appearance: WD/WN, no apparent distress Respiratory/Chest: Auscultation: breath sounds normal Cardiovascular: Heart Auscultation: RRR Abdomen: Bowel Sounds: normal Inspection & Palpation: soft, non-distended, no tenderness, guarding & rebound Assessment and Plan Assessment: 47 yo CF who presents for EGD secondary to GERD. Plan: Proceed with EGD.
--- NOTE | 2017-12-02 16:07 | Discharge Instructions ---
Endoscopy Patient Instructions Date / Procedure(s) Performed Dec 02, 2017. EGD Allergy Information Coded Allergies: Erythromycin (Verified Adverse Reaction, Mild, VOMITING, 12/02/17) Discharge Date / Findings Dec 02, 2017. Normal Gastric bypass anatomy Medication Instructions Stopped Medication(s): NO ALLERGY MEDS OK to resume all medications today as prescribed Reported Home Medications Medications Dose Route/Sig Max Daily Dose Days Date Category Probiotic (Probiotic Product) 1 Tab Tab 1 Tab PO QAM 11/15/17 Reported Zyrtec (Cetirizine Hcl) 10 Mg Tab 10 Mg PO BID 11/15/17 Reported Ventolin Hfa (Albuterol) 200 Puffs/05226 Mcg Aers 2-4 Puffs INH Q6H PRN 11/15/17 Reported Topamax (Topiramate) 50 Mg Tab 50 Mg PO HS 11/15/17 Reported Singulair (Montelukast Sodium) 10 Mg Tab 10 Mg PO HS 11/15/17 Reported Pseudoephedrine Hcl 60 Mg Tab 1 Tab PO BID 11/15/17 Reported Phenergan (Promethazine HCl) 25 Mg Tab 25 Mg PO Q4H PRN 11/15/17 Reported Protonix (Pantoprazole Sodium) 40 Mg Tab 40 Mg PO BID 11/15/17 Reported Mucinex D (Pseudoephedrine-Guaifenesin) 1 Tab Tab 600 Mg PO BID 11/15/17 Reported Mometasone Furoate (Mometasone Furoate (Nasal)) 50 Mcg/Act Spr 1 [place] MACK BID PRN 11/15/17 Reported Reglan (Metoclopramide HCl) 10 Mg Tab 10 Mg PO ACHS 11/15/17 Reported [Imitrex] 1 Tab PO DIRECTED PRN 11/15/17 Reported Hydromet (Hydrocodone Bit/Homatropine Methylb) 1 Ml Syrp 5-10 Ml PO QID PRN 11/15/17 Reported Ferrous Sulfate 325 Mg Tab 1 Tab PO BID 11/15/17 Reported Biaxin (Clarithromycin) 500 Mg Tab 1 Tab PO QAM 11/15/17 Reported Pulmicort Respules 0.5MG/2ML (Budesonide) 0.5 Mg/2 Ml Nebu 2 Ml INH BID 11/15/17 Reported Brovana (Arformoterol Tartrate) 15 Mcg/2 Ml Neb 15 Mcg INH BID 11/15/17 Reported Benadryl Allergy (Diphenhydramine Hcl) 25 Mg Cap 1 Cap PO HS 11/15/17 Reported Atrovent Hfa (Ipratropium [place]) 200 Puffs/3400 Mcg Aers 2 Puffs INH QID PRN 11/15/17 Reported Albuterol Sulfate 0.63 Mg/3 Ml Neb 1 Vial NEB QID PRN 11/15/17 Reported Albuterol Sulfate (Albuterol Sulf) 2.5 Mg/3 Ml Nebu 1 Dose INH Q4H PRN 11/15/17 Reported Provider Instructions Activity Restrictions - No exercising or heavy lifting for 24 hours. - Do not drink alcohol the day of the procedure. - Do not drive a car or operate machinery until the day after the procedure. - Do not make any important decisions or sign important papers in 24 hours after the procedure. Following Day: - Return to full activity which may include returning to work/school. Diet Start your diet with liquids and light foods (jello, soup, juice, toast). Then eat your usual diet if not nauseated. Treatment For Common After Affects For mild abdominal pain, bloating, or excessive gas: - Rest - Eat lightly - Lie on right side Follow-Up Information Follow-up with DR ASHRAF as scheduled Anesthesia Information What You Should Know You have had a procedure that required some medicine to reduce anxiety and discomfort. This treatment is called moderate sedation. After receiving the treatment, you may be sleepy, but you will be able to breathe on your own. The effects of the treatment may last for several hours. Follow these instructions along with Activity/Diet recommendations noted above: * Do NOT do anything where dizziness or clumsiness would be dangerous. * Rest quietly at home today, then you can be up and about tomorrow. * Have a responsible person stay with you the rest of today. * You may have had an I.V. today. If so, you may take the dressing off later today. Recommendations Call your doctor if: * Trouble breathing * Continuous vomiting for more than 24 hours * Temperature above 101 degrees * Severe abdominal pain or bloating * Pain not relieved by pain medicine ordered * There is increased drainage or redness from any incision * A large amount of rectal bleeding greater than 2-3 tablespoons. (If you had a polyp/s removed or have hemorrhoids, a small amount of blood - from the rectum is to be expected.) * You have any unanswered questions or concerns. IN THE EVENT OF A SERIOUS EMERGENCY, GO TO THE NEAREST EMERGENCY ROOM Your discharge instructions were prepared by provider Andres Ramos. Patient Instructions Signature Page Maria Guadalupe Lugo Patient (or Guardian) Signature/Date: I have read and understand the instructions given to me by my caregivers. Caregiver/RN/Doctor Signature/Date: The above-named patient and/or guardian has received patient instructions on this date. + Original Patient Signature Page (only) stays with chart. Please make copy for patient.
--- NOTE | 2017-12-02 16:13 | GI REPORT ---
Procedure Date: 12/02/2017 3:32 PM Procedure: Upper GI endoscopy Indications: Suspected gastro-esophageal reflux disease Medicines: Monitored Anesthesia Care Complications: No immediate complications. Estimated Blood Loss: Estimated blood loss: none. Procedure: Pre-Anesthesia Assessment: - Prior to the procedure, a History and Physical was performed, and patient medications and allergies were reviewed. The patient's tolerance of previous anesthesia was also reviewed. The risks and benefits of the procedure and the sedation options and risks were discussed with the patient. All questions were answered, and informed consent was obtained. Prior Anticoagulants: The patient has taken no previous anticoagulant or antiplatelet agents. ASA Grade Assessment: III - A patient with severe systemic disease. After reviewing the risks and benefits, the patient was deemed in satisfactory condition to undergo the procedure. After obtaining informed consent, the endoscope was passed under direct vision. Throughout the procedure, the patient's blood pressure, pulse, and oxygen saturations were monitored continuously. The scope was introduced through the mouth, and advanced to the jejunum. The upper GI endoscopy was accomplished without difficulty. The patient tolerated the procedure well. Findings: The examined esophagus was normal. Evidence of a Alvarado-en-Y gastrojejunostomy was found. The gastrojejunal anastomosis was characterized by healthy appearing mucosa. This was traversed. The [id number] limb was characterized by healthy appearing mucosa. The examined jejunum was normal. Impression: - Normal esophagus. - Alvarado-en-Y gastrojejunostomy with gastrojejunal anastomosis characterized by healthy appearing mucosa. - Normal examined jejunum. - No specimens collected. Recommendation: - Resume previous diet. - Continue present medications. - Return to GI office as previously scheduled. Andres Ramos, 12/02/2017 4:13:21 PM This report has been signed electronically. Note Initiated On: 12/02/2017 3:32 PM I attest to the content of the Intraoperative Record and orders documented therein, exceptions below
--- NOTE | 2017-12-02 16:17 | Anesthesiology Progress Note ---
Anesthesia Post Op Note Date & Time Dec 02, 2017 at 16:17 Vital Signs Pain Intensity: 0 Vital Signs Past 12 Hours Date Time Temp Pulse Resp B/P (MAP) Pulse Ox O2 Delivery O2 Flow Rate FiO2 12/02/17 14:52 36.7 106 20 148/90 (109) 98 Room Air Notes Mental Status: alert / awake / arousable, participated in evaluation Pt Amnestic to Procedure: Yes Nausea / Vomiting: adequately controlled Pain: adequately controlled Airway Patency, RR, SpO2: stable & adequate BP & HR: stable & adequate Hydration State: stable & adequate Anesthetic Complications: no major complications apparent
[2017-12-02 16:48] VITALS: BP 113/78; PULSE 101; O2SAT 98
== END | disposition home or self-care (01) ==
LOC: C.GI 14:25
PROVIDERS: ATTEND Internal Medicine
DX: K21.9 Gastro-esophageal reflux disease without esophagitis (principal); Z98.84 Bariatric surgery status; Z80.0 Family history of malignant neoplasm of digestive organs; Z88.1 Allergy status to other antibiotic agents; Z79.899 Other long term (current) drug therapy

== ENCOUNTER → 2017-12-19 | Outpatient (CLI) | payer OTHER ==
[~2017-12-19] MED LIST changes: -INSUINJ20 SC; -LIDOCAINE HCL 2% 2 ML VIAL (20MG/ML) ONE; -MIDAZOLAM HCL 1 MG/ML 2ML VIAL ONE; -PRED10TA PO; -PROPOFOL IV EMULSION 10 MG/ML 20 ML VIAL IV ONE; -SODIUM CHLORIDE 0.9% 500ML 500 ML IV ONE
--- NOTE | 2017-12-19 10:12 | DIAGNOSTIC IMAGING REPORT ---
GI SERIES W/O KUB CLINICAL HISTORY: 47 years-old Female presenting with GERD, history of gastric bypass. TECHNIQUE: A standard air contrast barium esophagram is performed. Multiple spot images of the esophagus are acquired both upright and prone. COMPARISON: None. FINDINGS: The patient was able to ingest barium without difficulty. Normal mucosal pattern of the esophagus. No evidence of intrinsic or extrinsic mass lesion. No aspiration observed. Intraesophageal reflux is noted. Post surgical changes of gastric bypass with a normal-appearing gastric pouch. No evidence of gastroesophageal reflux. The gastrojejunostomy is widely patent without evidence of holdup or leak. The jejunum distal to the gastrojejunostomy opacifies normally and is nondistended. Fluoroscopy dosage (mGy): Not available. Fluoroscopy time: 2.2 minutes. Number of fluoroscopic spot images: 16. IMPRESSION: 1. Intraesophageal reflux. No gastroesophageal reflux. 2. Postsurgical changes of gastric bypass without hold up at the gastrojejunostomy. Electronically signed by: Murali Gavin M.D. 12/19/2017 10:10 AM Dictated Date/Time: 12/19/2017 10:06 AM
== END | disposition home or self-care (01) ==
LOC: C.RAD 09:03
PROVIDERS: ATTEND Internal Medicine
DX: K21.9 Gastro-esophageal reflux disease without esophagitis (principal)

== ENCOUNTER 2018-01-19 16:20 | Emergency (ER) | payer OTHER ==
[~2018-01-19] VITALS: Ht 157.5 cm; Wt 116.9 kg
[2018-01-19 16:21] VITALS: TEMP 36.9; Ht 157.5 cm; Wt 116.9 kg
[2018-01-19] MEDS ORDERED: SODIUM CHLORIDE 0.9% 1000ML 500 ML IV STA (16:31)
--- NOTE | 2018-01-19 16:48 | EMERGENCY ROOM VISIT NOTE ---
History Report prepared by Zi: Juna Nash Under the Supervision of: Dr. Alex Mijares M.D. First contact with patient: 16:25 Chief Complaint: CARDIAC ASSESSMENT Stated Complaint: CHEST PAINS, RUNS IN FAMILY NO HISTORY OF HAVING History of Present Illness The patient is a 47 year old female who presents to the Emergency Room with complaints of constant right-sided chest pain beginning 45 minutes ago. The patient states that she first developed chest pain along with left arm numbness and tingling last night. She notes that her symptoms resolved and that she woke up feeling fine this morning. She reports that she had another episode of chest pain tonight while she was eating dinner. The patient states that her chest pain tonight was worse than her pain yesterday, and she notes that it was a sharp pain rated as an 8/10. She reports that her pain worsens when she breathes. The patient states that her current pain is dull and is a 3/10. She notes that her pain has relieved by itself. She also complains of diaphoresis and SOB. She denies any cough and congestion. She reports that she was in the hospital three months ago for asthma related problems. The patient states that she used her inhaler tonight with no relief of her symptoms. She notes that she no history of blood clots and has not had any prolonged travel recently. She reports that she has a family history of heart disease. The patient states that she is currently taking clarithromycin. Source of History: patient Onset: 45 minutes ago Position: chest (right-sided) Symptom Intensity: 8/10 at its worst, currently 3/10 Quality: sharp, dull Timing: constant Modifying Factors (Worsening): breathing Associated Symptoms: + diaphoresis, + SOB, No cough Note: The patient also denies any congestion. Review of Systems See HPI for pertinent positives & negatives. A total of 10 systems reviewed and were otherwise negative. Past Medical & Surgical Medical Problems: (1) Asthma (2) Hypertension (3) Migraines (4) Severe persistent asthmatic bronchitis with exacerbation (5) Sleep apnea Surgical Problems: (1) H/O gastric bypass Family History Cancer Diabetes mellitus FH: heart disease Hypertension Social History Smoking Status: Never Smoker Drug Use: none Marital Status: Housing Status: lives with family Current/Historical Medications Scheduled Arformoterol Tartrate ([place]ana), 15 MCG INH BID Budesonide (Pulmicort Respules 0.5MG/2ML), 2 ML INH BID Cetirizine Hcl (Zyrtec), 10 MG PO BID Clarithromycin (Biaxin), 1 TAB PO QAM Dexlansoprazole (Dexilant), 60 MG PO DAILY Diphenhydramine Hcl (Benadryl Allergy), 1 CAP PO HS Ferrous Sulfate (Ferrous Sulfate), 1 TAB PO BID Montelukast Sodium (Singulair), 10 MG PO HS Pseudoephedrine-Guaifenesin (Mucinex D), 600 MG PO BID Sumatriptan Succinate (Imitrex), 1 TAB PO PRN Topiramate (Topamax), 50 MG PO HS Scheduled PRN Albuterol Hfa (Ventolin Hfa), 2-4 PUFFS INH Q6H PRN for Shortness of Breath Albuterol Sulf (Albuterol Sulfate), 1 DOSE INH Q4H PRN for Wheezing Albuterol Sulfate (Albuterol Sulfate), 1 VIAL NEB QID PRN for Wheezing Ipratropium [place] (Atrovent Hfa), 2 PUFFS INH QID PRN for Shortness of Breath Mometasone Furoate (Nasal) (Mometasone Furoate), 1 SPRAY MACK BID PRN for PRN Promethazine Hcl (Phenergan), 25 MG PO Q4H PRN for Nausea Allergies Coded Allergies: Erythromycin (Verified Adverse Reaction, Mild, VOMITING, 01/19/18) Physical Exam Vital Signs Date Time Temp Pulse Resp B/P (MAP) Pulse Ox O2 Delivery O2 Flow Rate FiO2 01/19/18 17:12 109 24 134/89 98 Room Air 01/19/18 17:12 97 Room Air 01/19/18 16:46 110 01/19/18 16:36 Room Air 01/19/18 16:21 36.9 86 18 149/87 97 Room Air Physical Exam GENERAL: Patient is in no acute distress. HEENT: No acute trauma, normocephalic atraumatic, mucous membranes moist, no nasal congestion, no scleral icterus. NECK: No stridor, no adenopathy, no meningismus, trachea is midline. LUNGS: Clear to auscultation bilaterally, no wheeze, no rhonchi, breath sounds equal. HEART: Mildly tachycardic with a regular rhythm, no murmurs. CHEST: Tender to the right chest wall just medial to the breast. ABDOMEN: Soft, nontender, bowel sounds positive, no hernias, no peritonitis. EXTREMITIES: No cyanosis or edema, full range of motion of all the joints without pain or difficulty, no signs for acute trauma. NEUROLOGIC: Oriented x 3, no acute motor or sensory deficits, no focal weakness. SKIN: No rash, no jaundice, no diaphoresis. Medical Decision & Procedures ER Provider Diagnostic Interpretation: Radiology results as stated below per my review and radiologist interpretation: CHEST ONE VIEW PORTABLE FINDINGS: The lungs are clear. Cardiac silhouette is normal in size. No pleural effusions. No pneumothorax. IMPRESSION: No acute process. Electronically signed by: Compa Cisneros M.D. 01/19/2018 5:00 PM Laboratory Results 01/19/18 16:45 Red Blood Count 4.15, Mean Corpuscular Volume 84.6, Mean Corpuscular Hemoglobin 28.2, Mean Corpuscular Hemoglobin Concent 33.3, Mean Platelet Volume 9.0, Neutrophils (%) (Auto) 78.5, Lymphocytes (%) (Auto) 16.1, Monocytes (%) (Auto) 3.9, Eosinophils (%) (Auto) 1.0, Basophils (%) (Auto) 0.2, Neutrophils # (Auto) 8.11, Lymphocytes # (Auto) 1.66, Monocytes # (Auto) 0.40, Eosinophils # (Auto) 0.10, Basophils # (Auto) 0.02 01/19/18 16:45 Test 01/19/18 16:45 01/19/18 16:54 White Blood Count 10.32 K/uL (4.8-10.8) Red Blood Count 4.15 M/uL (4.2-5.4) Hemoglobin 11.7 g/dL (12.0-16.0) Hematocrit 35.1 % (37-47) Mean Corpuscular Volume 84.6 fL (80-100) Mean Corpuscular Hemoglobin 28.2 pg (25-34) Mean Corpuscular Hemoglobin Concent 33.3 g/dl (32-36) Platelet Count 361 K/uL (130-400) Mean Platelet Volume 9.0 fL (7.4-10.4) Neutrophils (%) (Auto) 78.5 % Lymphocytes (%) (Auto) 16.1 % Monocytes (%) (Auto) 3.9 % Eosinophils (%) (Auto) 1.0 % Basophils (%) (Auto) 0.2 % Neutrophils # (Auto) 8.11 K/uL (1.4-6.5) Lymphocytes # (Auto) 1.66 K/uL (1.2-3.4) Monocytes # (Auto) 0.40 K/uL (0.11-0.59) Eosinophils # (Auto) 0.10 K/uL (0-0.5) Basophils # (Auto) 0.02 K/uL (0-0.2) RDW Standard Deviation 40.4 fL (36.4-46.3) RDW Coefficient of Variation 13.2 % (11.5-14.5) Immature Granulocyte % (Auto) 0.3 % Immature Granulocyte # (Auto) 0.03 K/uL (0.00-0.02) Anion Gap 10.0 mmol/L (3-11) Est Creatinine Clear Calc Drug Dose 97.9 ml/min Estimated GFR () 92.0 Estimated GFR (Non- 79.3 BUN/Creatinine Ratio 10.0 (10-20) Calcium Level 8.1 mg/dl (8.5-10.1) Magnesium Level 1.8 mg/dl (1.8-2.4) Bedside D-Dimer 280 ng/mlFEU (0-450) Bedside Troponin I < 0.030 ng/ml (0-0.045) Laboratory results reviewed by me. Medications Administered Medications (Trade) Dose Ordered Sig/Guillermo Route Start Time Stop Time Status Last Admin Dose Admin Sodium Chloride 500 ml @ 999 mls/hr Q31M STAT IV 01/19/18 16:31 01/19/18 17:01 DC 01/19/18 17:12 999 MLS/HR ECG Per My Interpretation Indication: chest pain Rate (beats per minute): 118 Rhythm: sinus tachycardia Findings: other (Diffuse nonspecific ST change possibly consistent with the rate, no ST elevation, no PVCs) Comparison ECG Date: 04/30/2016 Change: Compared to prior, the rate has increased and the nonspecific ST change is slightly more pronounced. ED Course 1630: The patient was evaluated in room C9. A complete history and physical exam was performed. 1631: Sodium Chloride 500 ml @ 999 mls/hr IV 1725: I reevaluated and updated the patient. 1800: The patient was signed out to Dr. Egan at the change of shift. Medical Decision Differential diagnoses include: PE, musculoskeletal pain, anxiety, pneumonia, pneumothorax, NC, dysrhythmia, electrolyte imbalance, and anemia. There is no leukocytosis or concerning anemia. No significant electrolyte abnormality other than a sugar at 270. No kidney failure. Cardiac enzyme testing 1 is not consistent with acute cardiac injury. D-dimer testing is negative. A negative d-dimer certainly makes PE less likely. Chest film does not show pneumonia, mediastinal widening or CHF. On exam, I could reproduce her chest pain with palpation along the medial right breast. The patient's pain had resolved significantly on its own prior to arrival--she did not require pain medication. The patient has been ordered for a chest CT to rule out PE and aortic dissection, this test is pending. I have also ordered for a second cardiac troponin to be run at around 1900. Patient is aware of her testing thus far. She is aware that her glucose is elevated, she has been following with her doctors office for the hyperglycemia. At one point, she was using subcutaneous insulin. The patient's case is being assumed by Dr. Hira Harry, he will assume care at the change of shift. We await the results of the second troponin and the chest CT scan. The patient's disposition is pending at this point. Medication Reconcilliation Current Medication List: was personally reviewed by me Blood Pressure Screening Patient's blood pressure: Elevated blood pressure Blood pressure disposition: Elevated BP felt to be situational Impression Primary Impression: Pleuritic chest pain Additional Impressions: SOB (shortness of breath) Tachycardia Hyperglycemia Scribe Attestation The scribe's documentation has been prepared under my direction and personally reviewed by me in its entirety. I confirm that the note above accurately reflects all work, treatment, procedures, and medical decision making performed by me. Departure Information Dispostion Still a Patient Referrals Alexander Johnson D.O. (PCP) Patient Instructions My [facility] Problem Qualifiers
[2018-01-19 16:56] LABS: BASO % 0.2 %; BASO ABS # 0.02 K/uL (0-0.2); HEMATOCRIT 35.1 % (37-47); HEMOGLOBIN 11.7 g/dL (12.0-16.0); IG# 0.03 K/uL (0.00-0.02); LYMPH % 16.1 %; LYMPH ABS # 1.66 K/uL (1.2-3.4); MEAN CELL VOLUME 84.6 fL (80-100); MEAN CORPUSCULAR HEMOGLOBIN 28.2 pg (25-34); MEAN CORPUSCULAR HGB CONC 33.3 g/dl (32-36); MONO % 3.9 %; NEUT % 78.5 %; NEUT ABS # 8.11 K/uL (1.4-6.5); PLATELET COUNT 361 K/uL (130-400); RED CELL DISTRIBUTION WIDTH CV 13.2 % (11.5-14.5); RED CELL DISTRIBUTION WIDTH SD 40.4 fL (36.4-46.3); WHITE BLOOD COUNT 10.32 K/uL (4.8-10.8)
[2018-01-19] MEDS ORDERED: OPTIRAY 320 IV PRN (17:00)
--- NOTE | 2018-01-19 17:01 | DIAGNOSTIC IMAGING REPORT ---
CHEST ONE VIEW PORTABLE HISTORY: EVALUATE RESPIRATORY DISTRESS.DYSPNEA COMPARISON: Chest 10/24/2017. FINDINGS: The lungs are clear. Cardiac silhouette is normal in size. No pleural effusions. No pneumothorax. IMPRESSION: No acute process. Electronically signed by: Compa Cisneros M.D. 01/19/2018 5:00 PM Dictated Date/Time: 01/19/2018 4:59 PM
[2018-01-19 17:12] VITALS: O2SAT 97
[2018-01-19 17:13] LABS: CALCIUM 8.1 mg/dl (8.5-10.1); CREATININE 0.88 mg/dl (0.60-1.20); POTASSIUM 3.4 mmol/L (3.5-5.1)
[2018-01-19] MEDS ORDERED: DEXL60CA4 PO (17:13)
[2018-01-19] MEDS ORDERED: SUMA50TA15 PO (17:13)
[2018-01-19] MEDS ORDERED: SODIUM CHLORIDE 0.9% 500ML 500 ML IV STA (17:44)
--- NOTE | 2018-01-19 18:24 | DIAGNOSTIC IMAGING REPORT ---
CHEST CTA for PULMONARY ARTERIES CT DOSE: 715.60 mGy.cm HISTORY: Atypical chest pain. TECHNIQUE: Multiaxial CT images of the chest were performed following the intravenous administration of contrast to evaluate the pulmonary arteries. Maximal intensity projection images were also obtained. A dose lowering technique was utilized adhering to the principles of ALARA. COMPARISON STUDY: Chest CTA 10/24/2017. FINDINGS: Stable mild anterior wedging within the T8 vertebral body consistent with an old compression deformity. Normal caliber thoracic aorta with no evidence for dissection. No pleural or pericardial effusions. The heart is normal in size. No filling defects within the pulmonary arteries to suggest pulmonary embolus. Calcified mediastinal and right hilar lymph nodes are again noted. Hepatic steatosis. Cholelithiasis. Postoperative changes suggestive of prior gastric bypass. No fractures within the visualized osseous structures. The central airways are patent. No pneumothorax. The lungs are essentially clear. IMPRESSION: No evidence for pulmonary embolus. Additional findings as described above. Electronically signed by: Compa Cisneros M.D. 01/19/2018 6:23 PM Dictated Date/Time: 01/19/2018 6:13 PM
--- NOTE | 2018-01-19 18:31 | EMERGENCY ROOM VISIT NOTE ---
ED Visit Note First contact with patient: 17:38 The patient was taken in signout from Dr. Mijares at the change of shift. Please see that note for details. The patient was pending CT imaging and repeat troponin measurement for pleuritic chest pain. CT imaging performed and did not reveal any evidence of pulmonary embolism or intrathoracic abnormality. Gallstones noted. No signs of cholecystitis. Repeat troponin was ordered by Dr. Mijares and resulted at 0. The patient's HEART SCORE is 5. She qualifies for outpatient follow-up. If she worsens in any way she will be back. She was notified about the gallstones. Patient and family felt comfortable with the plan. I gave my usual and customary discussion regarding this issue.
[2018-01-19 19:27] VITALS: BP 148/95; PULSE 85; O2SAT 97
== END 2018-01-19 19:35 | disposition home or self-care (01) ==
LOC: C.EDB 16:21 → C.EDC 19:35
DX: R07.9 Chest pain, unspecified (principal); R06.02 Shortness of breath; R00.0 Tachycardia, unspecified; R73.9 Hyperglycemia, unspecified; Z88.8 Allergy status to other drugs, medicaments and biological substances; I10 Essential (primary) hypertension; J45.909 Unspecified asthma, uncomplicated